=== PATIENT | male | born 1945 | race Caucasian/White ===

== ENCOUNTER 2017-12-16 08:55 | Day surgery (SDC) | payer MEDICARE, OTHER ==
[2017-12-16] MEDS ORDERED: Sodium Chloride 0.9% 5 ML Syringe FLUSH PRN (09:00)
[2017-12-16] MEDS ORDERED: Lactated Ringers 1,000 ML IV SCH (09:00)
[2017-12-16] MEDS ORDERED: Midazolam 1 MG/ML 2 ML SDV ONE (09:10)
[2017-12-16] MEDS ORDERED: Propofol 200 MG/20 ML SDV ONE (09:11)
[2017-12-16] MEDS ORDERED: fentaNYL 100 MCG/2 ML SDV ONE (09:11)
[2017-12-16] MEDS ORDERED: EPINEPHrine 1:10,000 1 MG/10 ML Syringe ONE (09:14)
[2017-12-16] MEDS ORDERED: Propofol 200 MG/20 ML SDV IV ONE (10:07)
[2017-12-16] MEDS ORDERED: Midazolam 1 MG/ML 2 ML SDV IV ONE (10:07)
[2017-12-16] MEDS ORDERED: fentaNYL 100 MCG/2 ML SDV IV ONE (10:07)
--- NOTE | 2017-12-16 10:46 | PCM.OPNOTE ---
- General Post-Op/Procedure Note Condition: Good Free Text/Narrative:: INFORMED CONSENT: Patient is here today for elective colonoscopy. All aspects of this procedure have been discussed with the patient. All possible complications also, including possibility of perforation, infection, pain, bleeding and unknown complications. In the event of perforation patient may need to have abdominal exploration, colon resection, colostomy and even was discussed. Anesthetic complications were handled by anesthesia department. The patient understands fully well. Patient did not have any further questions for me at the end of my interview. The patient wishes for me to proceed. PREOPERATIVE DIAGNOSIS/INDICATIONS: [Screening] POSTOPERATIVE DIAGNOSIS: [Multiple large diverticuli in the sigmoid colon and in the descending colon otherwise negative] INSTRUMENT USED: Olympus videocolonoscope. ASA CLASSIFICATION: [2] ANESTHESIA: Continuous EKG, oximetry and intermittent blood pressure and respiratory monitoring were performed throughout the procedure. IV Versed and Fentanyl were administered. PROCEDURE PERFORMED: Colonoscopy POSITIONS OF PATIENT: Left lateral. RECTUM: Normal. SIGMOID COLON: Multiple large diverticuli were seen. DESCENDING COLON: Multiple diverticuli were seen. SPLENIC FLEXURE: Normal. TRANSVERSE COLON: Normal. HEPATIC FLEXURE: Normal. ASCENDING COLON: Normal. CECUM: Normal. ILEOCECAL VALVE: Normal. BIOPSY: None. TOLERANCE: Excellent. COMPLICATIONS: None. Multiple large diverticuli of the sigmoid and descending colon, otherwise normal.
[2017-12-16 13:04] VITALS: BP 122/70
== END 2017-12-16 12:30 | disposition home or self-care (01) ==
LOC: KA.SDS 08:55
PROVIDERS: ATTEND Family Medicine
DX: Z12.11 Encounter for screening for malignant neoplasm of colon (principal); K57.30 Diverticulosis of large intestine without perforation or abscess without bleeding; I12.9 Hypertensive chronic kidney disease with stage 1 through stage 4 chronic kidney disease, or unspecified chronic kidney disease; N18.3 Chronic kidney disease, stage 3 (moderate); J20.9 Acute bronchitis, unspecified; E79.0 Hyperuricemia without signs of inflammatory arthritis and tophaceous disease; E78.00 Pure hypercholesterolemia, unspecified; C91.10 Chronic lymphocytic leukemia of B-cell type not having achieved remission; M25.562 Pain in left knee; M25.561 Pain in right knee; F41.9 Anxiety disorder, unspecified; G20 Parkinson's disease; Z79.899 Other long term (current) drug therapy; Z88.1 Allergy status to other antibiotic agents
CPT/HCPCS: 93005; J2250; J2704; J3010

== ENCOUNTER 2018-11-12 12:43 | Inpatient (IN) | payer MEDICARE, OTHER ==
[2018-11-12] MEDS: Sodium Chloride 0.9% 10 ML Syringe FLUSH PRN ×2 (13:06→17:13)
[2018-11-12] MEDS ORDERED: Morphine 2 MG/ML Syringe IVPUSH PRN (13:16)
[2018-11-12 13:32] LABS: ANION GAP 14.7 mmol/L (5-15)
[2018-11-12] MEDS: Furosemide 40 MG/4 ML VIAL IVPUSH SCH (14:15)
[2018-11-12] MEDS ORDERED: Albuterol 8 GM Inhaler INH PRN (17:59)
[2018-11-12] MEDS ORDERED: Fluticasone Propionate Nasal Spray 16 GM Bottle NASBOTH PRN (18:06)
[2018-11-12] MEDS: traMADol 50 MG Tab PO SCH (20:21)
[2018-11-12] MEDS ORDERED: Carbidopa/Levodopa 50-200 MG Tab.ER PO SCH (21:00)
[2018-11-12] MEDS: Mirtazapine 15 MG Tab PO SCH (21:57)
[2018-11-12] MEDS: Docusate Sodium 100 MG Cap PO SCH (21:57)
[2018-11-12] MEDS: Topiramate 25 MG Tab PO SCH (21:58)
[2018-11-12] MEDS: Carbidopa/Levodopa 25-100 MG Tab.ER PO SCH (21:58)
[2018-11-12] MEDS ORDERED: traMADol 50 MG Tab PO SCH (23:00)
[2018-11-13] MEDS ORDERED: Carbidopa/Levodopa 50-200 MG Tab.ER PO PRN (01:00)
[2018-11-13] MEDS: oxyCODONE 5 MG Tab PO PRN ×3 (02:12→11:35)
[2018-11-13] MEDS: Carbidopa/Levodopa 25-100 MG Tab.ER PO PRN (02:12)
[2018-11-13] MEDS: Citalopram 20 MG Tab PO SCH (08:20)
[2018-11-13] MEDS: atorvaSTATin 10 MG Tab PO SCH (08:20)
[2018-11-13] MEDS: Topiramate 25 MG Tab PO SCH ×2 (08:20→20:07)
[2018-11-13] MEDS: Omeprazole 20 MG Cap.CR PO SCH (08:20)
[2018-11-13] MEDS: Docusate Sodium 100 MG Cap PO SCH ×2 (08:21→20:07)
[2018-11-13] MEDS: traMADol 50 MG Tab PO SCH ×2 (08:21→20:05)
[2018-11-13] MEDS: Carbidopa/Levodopa 25-100 MG Tab PO SCH ×3 (08:21→17:35)
[2018-11-13] MEDS: Apixaban 5 MG Tab PO SCH ×2 (08:22→20:06)
[2018-11-13] MEDS: Polyethylene Glycol 3350 Powder 17 GM Packet PO SCH (08:23)
[2018-11-13] MEDS: Allopurinol 100 MG Tab PO SCH (08:29)
[2018-11-13] MEDS: Propranolol 80 MG Cap.ER PO SCH (08:29)
[2018-11-13] MEDS: Furosemide 40 MG/4 ML VIAL IVPUSH SCH (08:31)
[2018-11-13] MEDS: Sodium Chloride 0.9% 10 ML Syringe FLUSH PRN (08:32)
[2018-11-13 08:48] LABS: ANION GAP 12.5 mmol/L (5-15)
[2018-11-13] MEDS ORDERED: Non-Formulary Medication 1 Each (Cholecalciferol (Vitamin D3) [Vitamin D3] 400 UNIT) PO SCH (09:00)
[2018-11-13] MEDS ORDERED: Non-Formulary Medication 1 Each (Acetylcysteine [Nac] 600 MG) PO SCH (09:00)
[2018-11-13] MEDS ORDERED: IBRUTINIB 420 MG PO SCH (09:00)
[2018-11-13] MEDS: Mirtazapine 15 MG Tab PO SCH (20:08)
[2018-11-13] MEDS: Carbidopa/Levodopa 25-100 MG Tab.ER PO SCH (20:08)
[2018-11-14] MEDS: Carbidopa/Levodopa 25-100 MG Tab.ER PO PRN (02:36)
[2018-11-14] MEDS: Carbidopa/Levodopa 25-100 MG Tab PO SCH ×3 (06:33→16:41)
[2018-11-14] MEDS: Omeprazole 20 MG Cap.CR PO SCH (06:33)
[2018-11-14] MEDS: traMADol 50 MG Tab PO SCH ×2 (06:34→21:03)
[2018-11-14] MEDS: Propranolol 80 MG Cap.ER PO SCH (08:18)
[2018-11-14] MEDS: Docusate Sodium 100 MG Cap PO SCH ×2 (08:18→21:06)
[2018-11-14] MEDS: Polyethylene Glycol 3350 Powder 17 GM Packet PO SCH (08:18)
[2018-11-14] MEDS: Topiramate 25 MG Tab PO SCH ×2 (08:18→21:05)
[2018-11-14] MEDS: atorvaSTATin 10 MG Tab PO SCH (08:18)
[2018-11-14] MEDS: Allopurinol 100 MG Tab PO SCH (08:18)
[2018-11-14] MEDS: Citalopram 20 MG Tab PO SCH (08:19)
[2018-11-14] MEDS: Apixaban 5 MG Tab PO SCH ×2 (08:19→21:04)
[2018-11-14] MEDS: Furosemide 40 MG/4 ML VIAL IVPUSH SCH (08:22)
[2018-11-14] MEDS: Sodium Chloride 0.9% 10 ML Syringe FLUSH PRN (08:28)
[2018-11-14] MEDS: oxyCODONE 5 MG Tab PO PRN ×2 (09:35→16:41)
--- NOTE | 2018-11-14 13:43 | PN ---
11/14/2018 PATIENT NAME: MONICA VALDEZ SUBJECTIVE: This is a 73-year-old patient who had a left total knee surgery replacement by Dr. Sanderson this past Thursday. The patient was doing okay after surgery, went home and then he walked on his knee. He had no pain on the knee and then he woke up next morning, which would be Thursday morning and the knee was very swollen and painful. He went to the clinic at that time. He was admitted to the hospital. Today the patient states he cannot believe how well the knee is doing; he says the swelling is way down and the bruising is way down. He keeps it elevated on two pillows with a cold pack on it. He has been getting Lasix IV daily. There is some drainage coming from the robotic incisions. It has been draining some serosanguineous drainage. He states that the dressing was saturated last night. OBJECTIVE: VITAL SIGNS: Today, his weight is 210, temperature is 98.3, pulse is 66, blood pressure is 158/78, respiratory rate is 16, and oxygen saturation on room air is 99%. GENERAL: This is an elderly gentleman, pleasant, no acute distress. HEART: Tones are regular rate and rhythm. No murmurs identified. GI: Abdomen is soft, nontender, and nondistended. Bowel sounds present x4. LUNGS: Sounds are clear throughout lung carbone. 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 He has lot of pain with movement. LABORATORY DATA: The patient's lab work today, his CBC shows a white count continuing trending downward, white count today is 11.9. Hemoglobin continues to trend down also at 9.2, yesterday it was 9.4, and platelet count is 131. Chemistry panel shows a sodium that is up almost to normal, yesterday it was 129, today it is 134. The patient's BUN is 22, creatinine is 1.22, GFR is 58. The patient's total protein is low at 5.0 and albumin is low at 2.4, otherwise unremarkable. IMPRESSION AND PLAN: 1. Increased pain and swelling to left knee, status post total knee arthroplasty from this past Thursday by Dr. Sanderson. Plan: We are going to continue to elevate the knee. We will continue with Eliquis 2.5 mg twice a day. Continue with cold pack. We will continue with Lasix 20 mg daily. The patient's weight is going down. Physical Therapy will evaluate the patient tomorrow. 2. History of gout. Plan: Continue with allopurinol 100 mg daily. 3. History of hyperlipidemia. Plan: Continue with Lipitor 20 mg daily. 4. History of Parkinson's. Plan: Continue with Sinemet as ordered. 5. History of depression. Plan: Continue with Celexa 10 mg daily. 6. History of insomnia. Plan: Continue with Remeron 15 mg at bedtime. 7. History of gastroesophageal reflux disease. Plan: Continue with omeprazole 20 mg in the morning. 8. Pain secondary to recent surgery. Plan: Continue with morphine 2 mg IV every 6 hours as needed. He also can have some oxycodone 5 mg every 4 hours as needed for pain. 9. History of migraine headaches. Plan: Continue with Inderal LA 80 mg daily along with Topamax 50 mg twice a day. OVERALL PLAN: Repeat lab work in the morning and CBC to see if his white count continues to trend down. Also to keep an eye on his hemoglobin. It is down to 9.2. We will also repeat a CMP tomorrow morning. Continue to keep an eye on his renal function. May need to consider discontinuing Lasix tomorrow. The patient's CBC does show smudge cells. /[id number]/MODL MTDD
[2018-11-14] MEDS: Mirtazapine 15 MG Tab PO SCH (21:06)
[2018-11-14] MEDS: Carbidopa/Levodopa 25-100 MG Tab.ER PO SCH (21:06)
[2018-11-14 23:20] VITALS: PULSE 71
[2018-11-15] MEDS: Carbidopa/Levodopa 25-100 MG Tab.ER PO PRN (02:38)
[2018-11-15] MEDS: traMADol 50 MG Tab PO SCH (07:40)
[2018-11-15] MEDS: Carbidopa/Levodopa 25-100 MG Tab PO SCH ×2 (07:40→10:46)
[2018-11-15] MEDS: Omeprazole 20 MG Cap.CR PO SCH (07:40)
[2018-11-15 07:52] LABS: ANION GAP 13.6 mmol/L (5-15)
[2018-11-15] MEDS: Polyethylene Glycol 3350 Powder 17 GM Packet PO SCH (08:32)
[2018-11-15] MEDS: Apixaban 5 MG Tab PO SCH (08:34)
[2018-11-15] MEDS: Docusate Sodium 100 MG Cap PO SCH (08:34)
[2018-11-15] MEDS: atorvaSTATin 10 MG Tab PO SCH (08:34)
[2018-11-15] MEDS: Citalopram 20 MG Tab PO SCH (08:34)
[2018-11-15] MEDS: Propranolol 80 MG Cap.ER PO SCH (08:34)
[2018-11-15] MEDS: Allopurinol 100 MG Tab PO SCH (08:34)
[2018-11-15] MEDS: Topiramate 25 MG Tab PO SCH (08:38)
[2018-11-15 08:39] VITALS: BP 130/68
[2018-11-15] MEDS: Sodium Chloride 0.9% 10 ML Syringe FLUSH PRN (08:39)
[2018-11-15] MEDS: Furosemide 40 MG/4 ML VIAL IVPUSH SCH (08:39)
--- NOTE | 2018-11-15 08:54 | PN ---
11/13/2018 PATIENT NAME: MONICA VALDEZ HISTORY OF PRESENT ILLNESS: This is a 73-year-old male patient who had a total knee replacement done by Dr. Sanderson in [place] on Thursday. He states on morning he got up and walked and he did all the tests they wanted before he went home. He went home on from the hospital in [place]. He states that he went home night, the knee started to swell a lot, became very painful. He woke up Thursday, it was very large, red, painful. He went to the clinic and had seen Dr. Mary Byrd at that time. The patient was admitted for increased swelling to right knee. The patient did have quite a bit of drainage from the robotic incisions below the knee. It was draining serosanguineous drainage. Today, the patient states that it is still pretty swollen, but nothing like it was. He does have a cold pack on it at this time. It is still draining a little bit of fluid. He says the pain seems to be better today. OBJECTIVE: VITAL SIGNS: Today, the patient's weight is 213 pounds. Temperature is 98.2, pulse rate is 77, blood pressure is 122/69, respiratory rate is 16, oxygen saturation on room air is 99%. GENERAL: This is an elderly gentleman, in no acute distress. The patient does have his left leg elevated. Left leg is very tender with palpation. It is edematous. There is some drainage coming out of the small incisions where the robotic went through. Dressing was changed while I was in there. Continue with the cold compress that he has on there. HEART: Tones are regular rate and rhythm. No murmurs identified. LUNGS: Sounds are clear throughout lung carbone. ABDOMEN: Soft, nontender, nondistended. Bowel sounds present x4. LABORATORY DATA: The patient's lab work that he had obtained today is CBC shows a white count elevated at 12.7, this improved from yesterday when it was 16.8. Hemoglobin is down a little bit today at 9.4, yesterday it was 10.6, platelet count was slightly low at 130. The patient's chemistry panel shows sodium low at 97, creatinine 1.25, GFR of 56. Albumin is low at 2.37, otherwise unremarkable. IMPRESSION AND PLAN: 1. Status post left total knee done by Dr. Sanderson this past Thursday with increased swelling and pain after being discharged home. Plan, will continue with Eliquis 2.5 mg twice a day. Also, continue with Lasix 20 mg IV daily. We will continue to keep the leg elevated with cold pack on it to keep the swelling down as much as possible. He is unable to tolerate a GARFIELD stocking on that leg at this time. 2. History of gout. Plan, continue with allopurinol 100 mg daily. 3. History of hyperlipidemia. Plan, continue with Lipitor 20 mg daily. 4. History of Parkinson's. Plan, continue with Sinemet as ordered. 5. History of depression. Plan, continue with Celexa 10 mg daily. 6. History of cancer. Continue with Imbruvica as ordered. 7. History of insomnia. Plan, continue with Remeron 50 mg at bedtime. 8. Pain secondary to recent surgery. Plan, continue with morphine as ordered every 6 hours as needed. Also, tramadol, he can have as needed every 4 hours. 9. History of gastroesophageal reflux disease. Plan, continue with omeprazole 20 mg daily in the morning. 10.History of migraines. Plan, continue with Inderal 80 mg long-acting daily along with Topamax 50 mg twice a day. OVERALL PLAN: Continue to see how the patient's pain and swelling does. No medication changes today. We will continue to change the dressing to the left knee twice daily per nursing staff. /[id number]/MODL
[2018-11-15] MEDS: oxyCODONE 5 MG Tab PO PRN (10:31)
--- NOTE | 2018-11-15 12:27 | DISCH ---
Date of discharge to swing bed would be today, which is 11/15/2018. ADMITTING DIAGNOSIS: Increased pain and swelling to left knee, status post total knee arthroplasty by Dr. Sanderson. FINAL DIAGNOSIS: Left knee rehabilitation needed strengthening and pain control along with edema control to left, status post total knee. BRIEF HISTORY AND ESSENTIAL PHYSICAL FINDINGS: This is a 73-year-old gentleman with a history of Parkinson's who had a left total knee replacement done by Dr. Sanderson in [place] on Thursday. On , he was discharged from the hospital in [place]. He had gone home, he says the pain was really not very much in his knee, so he had walked. When he got home, he says that knee felt really good, so he had walked with a walker when he got home. He woke up Thursday and the knee was very swollen and very painful. He went to the clinic at that time and seeing Dr. Mary Byrd. The patient's knee was very edematous and painful. The patient was admitted to the hospital at that time. SIGNIFICANT LABS XRAYS AND CONSULTATION FINDINGS: The patient's lab work that was obtained today, which is 11/15/2018, CBC shows white count 12.8, hemoglobin 9.1, platelet count 154. Chemistry panel shows sodium slightly low at 133, creatinine slightly elevated at 1.34, GFR is 52. The patient's total protein is low at 5.5 and albumin is low at 2.28, otherwise unremarkable. COURSE IN HOSPITAL WITH COMPLICATIONS IF ANY: The patient has had his left knee elevated on pillows with a cold pack on it. He has had assist to the bathroom. He has been doing very well. The patient states that the swelling and the pain is much improved. Still very hard for him to get up and walk on the knee. He says it is amazing how much better the knee looks now than it did on Thursday. CONDITION TREATMENT AND FINAL DISPOSITION ON DISCHARGE AND PROGNOSIS: 1. Status post left knee replacement with increased pain and swelling. We are going to swing the patient over to swing bed status today. He has been doing very well since admission. He does need quite intense physical therapy prior to going home. We are going to continue to keep the knee elevated on pillows along with a cold pack. We are going to keep him anticoagulated on Eliquis 2.5 mg twice a day. Physical therapy appointment he had at 10 o'clock this morning. They are going to evaluate him. I am actually going to discontinue Lasix today. Creatinine is coming up a little bit, so I am going to discontinue that p.o. Lasix. 2. History of gout. Plan, continue with allopurinol 100 mg daily. 3. History of hyperlipidemia. Plan, continue with Lipitor 20 mg daily. 4. History of Parkinson. Plan, continue with Sinemet as ordered. 5. History of depression. Plan, continue with Celexa 10 mg daily. 6. History of insomnia. Plan, continue with Remeron 15 mg at bedtime. 7. History of GERD. Plan, continue with omeprazole 20 mg in the morning. 8. Secondary to recent surgery. Plan, continue with morphine 2 mg IV every 6 hours as needed. Also, he is on some oxycodone 5 mg every 4 hours as needed for pain. 9. History of migraine headaches. Plan, continue with Inderal LA 80 mg daily along with Topamax 50 mg twice a day. OVERALL PLAN: The patient seems to be doing very well. We are going to swing him over to swing bed status today for physical therapy and occupational therapy to work with them prior to going back home status post his left total knee arthroplasty. /[id number]/MODL
== END 2018-11-15 10:15 | disposition swing bed (61) | DRG 561 ==
LOC: KA.MS 12:43
PROVIDERS: ADMIT Family Medicine; ATTEND Family Medicine
DX: Z47.1 Aftercare following joint replacement surgery (principal); N18.3 Chronic kidney disease, stage 3 (moderate); G20 Parkinson's disease; Z96.652 Presence of left artificial knee joint; G47.00 Insomnia, unspecified; M10.9 Gout, unspecified; K21.9 Gastro-esophageal reflux disease without esophagitis; I12.9 Hypertensive chronic kidney disease with stage 1 through stage 4 chronic kidney disease, or unspecified chronic kidney disease; G43.909 Migraine, unspecified, not intractable, without status migrainosus; Z96.651 Presence of right artificial knee joint; I48.91 Unspecified atrial fibrillation; I25.10 Atherosclerotic heart disease of native coronary artery without angina pectoris; E78.00 Pure hypercholesterolemia, unspecified; Z88.1 Allergy status to other antibiotic agents; Z85.46 Personal history of malignant neoplasm of prostate; Z86.718 Personal history of other venous thrombosis and embolism; Z85.118 Personal history of other malignant neoplasm of bronchus and lung; Z90.49 Acquired absence of other specified parts of digestive tract; Z92.21 Personal history of antineoplastic chemotherapy; Z90.89 Acquired absence of other organs; Z87.81 Personal history of (healed) traumatic fracture
CPT/HCPCS: 36415; 80053; 85025; A9270-GY; J1940; J2270

== ENCOUNTER 2018-11-15 09:03 | Inpatient (IN) | payer MEDICARE, OTHER ==
[2018-11-15] MEDS ORDERED: Albuterol 8 GM Inhaler INH PRN ×2 (10:20→10:25)
[2018-11-15] MEDS ORDERED: Sodium Chloride 0.9% 10 ML Syringe FLUSH PRN ×2 (10:20)
[2018-11-15] MEDS ORDERED: Morphine 2 MG/ML Syringe IVPUSH PRN (10:20)
[2018-11-15] MEDS ORDERED: Fluticasone Propionate Nasal Spray 16 GM Bottle NASBOTH PRN ×2 (10:20→10:25)
[2018-11-15] MEDS ORDERED: PSEUDOEPHEDRINE HCL 120 MG PO PRN (10:25)
[2018-11-15] MEDS ORDERED: oxyCODONE 5 MG Tab PO PRN (10:25)
[2018-11-15] MEDS ORDERED: oxyCODONE 5 MG Tab PO ONE (10:26)
[2018-11-15] MEDS ORDERED: traMADol 50 MG Tab PO SCH (11:00)
[2018-11-15] MEDS ORDERED: Carbidopa/Levodopa 25-100 MG Tab PO SCH (11:30)
--- NOTE | 2018-11-15 11:57 | HP ---
HISTORY OF PRESENT ILLNESS: This is a 73-year-old patient who recently had a left total knee surgery replacement by Dr. Sanderson on this past Thursday. The patient was doing okay after surgery. He had gotten up and walked and passed all the requirements before going home, so he had been discharged on morning. He had gone home and he had limited pain to his left knee, so he walked at home with his walker. He went to bed and he woke up Thursday, and his knee was very painful and very swollen. He was concerned, so he went to the clinic at that time and seen Dr. Delano Byrd. The patient's knee was draining some serosanguineous drainage from the robotic sites. The patient was admitted to the hospital at that time. The patient does have a history of Parkinson's. The patient was originally admitted over the weekend in acute status and his knee was elevated and cold pack applied. He was given some IV Lasix and his knee did drain some drainage and the swelling and bruising did improve quite a bit. The pain also did improve. PAST MEDICAL HISTORY: Gout, hyperlipidemia, Parkinson's, depression, recent cancer diagnosis, insomnia, GERD, migraines, and left total knee. MEDICATIONS: While in the hospital, he had albuterol inhaler that he would use every 4 hours as needed, allopurinol 100 mg daily, Eliquis 2.5 mg twice a day, Lipitor 20 mg daily, Sinemet as ordered. He was taking vitamin D3 400 units daily, Celexa 10 mg daily, Colace 100 mg twice daily, Elodia-Colace 1 tab twice a day. He also had Flonase nasal spray as needed. He is taking Imbruvica 420 mg daily, Remeron 15 mg at bedtime, morphine 2 mg IV every 6 hours as needed, omeprazole 20 mg daily in the morning, oxycodone 5 mg every 4 hours as needed, MiraLAX 17 g daily, Inderal LA 80 mg p.o. daily, Topamax 50 mg twice a day, tramadol scheduled every 12 hours, and some urea 20% cream topical daily. ALLERGIES: Levaquin. 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 Lives here in [place] with his . No alcohol or tobacco use. REVIEW OF SYSTEMS: CONSTITUTIONAL: No weight loss. No fever. No chills. No night sweats. Appetite is good. No fatigue. EYES: No recent visual changes. ENT: No sinus congestion or hoarseness. CARDIOVASCULAR: No chest pain or palpitations. RESPIRATORY: No cough. No shortness of breath. GI: No vomiting, diarrhea or melena. : No dysuria or hematuria. MUSCULOSKELETAL: Left knee swollen, painful, status post surgery. INTEGUMENTARY: No rash or pruritus. NEUROLOGIC/PSYCHIATRIC: No recent headache or focal weakness. No depressive symptoms. ENDOCRINE: No heat or cold intolerances or polydipsia. HEMATOLOGIC/LYMPHATIC: No excessive bruising or lymph node swelling. ALLERGIC/IMMUNOLOGIC: No hives or recurrent infections. PHYSICAL EXAMINATION: GENERAL: This is a white male, elderly, in no acute distress. VITAL SIGNS: Today, temperature is 98.5, weight is 210 pounds, pulse rate is 71, blood pressure is 130/68, respiratory rate is 16, oxygen saturation on room air is 99. HEENT: Head is normocephalic. EOMs are intact. Pupils are equal, round, and reactive to light and accommodation. Nose is clear. No pharyngeal erythema. LUNGS: Sounds are clear throughout lung carbone. CARDIAC: Regular rate and rhythm. No murmurs identified. ABDOMEN: Soft, nontender, nondistended. Bowel sounds present x4. EXTREMITIES: Full range of motion except the left knee is edematous. Surgical dressing still intact. Ecchymosis is improved from previous assessment. NEUROLOGIC: Grossly intact. DIAGNOSTIC: The patient's lab work that was obtained today. CBC shows a white count at 12.8, hemoglobin 9.1, platelet count 154. Chemistry panel shows sodium slightly low 133. The patient's creatinine is slightly elevated at 1.34, BUN is 24, GFR is 52. The patient's total protein is low at 5.5, albumin is low at 2.28. IMPRESSION/PLAN: 1. Pain and swelling, status post total knee surgery this past week by Dr. Sanderson in [place]. Plan: We will continue to elevate the knee as much as possible. Continue with cold pack. We will continue with anticoagulation of Eliquis 2.5 mg twice a day. Physical Therapy did evaluate the patient this morning. I am going to discontinue the patient's Lasix today. The weight has gone down, up with assist. 2. History of gout. Plan: Continue with allopurinol 100 mg daily. 3. History of hyperlipidemia. Plan: Continue with Lipitor 20 mg daily. 4. History of Parkinson's. Plan: Continue with Sinemet as ordered. 5. History of depression. Plan: Continue with Celexa 10 mg daily. 6. History of insomnia. Plan: Continue with Remeron 15 mg at bedtime. 7. History of gastroesophageal reflux disease. Plan: Continue with omeprazole 20 mg daily in the morning. 8. Secondary to recent surgery. Plan: Continue with tramadol 50 mg twice a day scheduled. I did discontinue his IV morphine, he may have oxycodone 5 mg orally every 4 hours as needed for pain. He has not been needing much of the p.r.n. medication. May consider decreasing the tramadol dose to PRN. 9. History of migraine headaches. Plan: Continue with Inderal LA 80 mg daily along with Topamax 50 mg twice a day. OVERALL PLAN: The patient is being discharged from inpatient acute status to swing bed status today. The patient is doing really well. Knee swelling has gone down. Bruising has gone down. Pain has gone down. He seems to be doing well. We will see how he does with physical therapy and walking. We will keep an eye on his lab work at this time. Patient does have a history of CLL and he did have some smudge cells on his CBC. /[id number]/MODL MTDD
[2018-11-15] MEDS: oxyCODONE 5 MG Tab PO PRN ×2 (15:38→22:16)
[2018-11-15] MEDS: Carbidopa/Levodopa 25-100 MG Tab PO SCH (17:54)
[2018-11-15] MEDS: traMADol 50 MG Tab PO SCH (19:40)
[2018-11-15] MEDS ORDERED: DOCUSATE CALCIUM 100 MG PO SCH (21:00)
[2018-11-15] MEDS ORDERED: Mirtazapine 15 MG Tab PO SCH (21:00)
[2018-11-15] MEDS ORDERED: Non-Formulary Medication 1 Each (Topiramate [Topiramate] 50 MG) PO SCH (21:00)
[2018-11-15] MEDS ORDERED: Non-Formulary Medication 1 Each (Apixaban [Eliquis] 2.5 MG) PO SCH (21:00)
[2018-11-15] MEDS ORDERED: Carbidopa/Levodopa 50-200 MG Tab.ER PO SCH (21:00)
[2018-11-15] MEDS: Apixaban 5 MG Tab PO SCH (21:06)
[2018-11-15] MEDS: Mirtazapine 15 MG Tab PO SCH (21:06)
[2018-11-15] MEDS: Docusate Sodium 100 MG Cap PO SCH (21:06)
[2018-11-15] MEDS: Carbidopa/Levodopa 25-100 MG Tab.ER PO SCH (21:07)
[2018-11-15] MEDS: Topiramate 25 MG Tab PO SCH (21:07)
[2018-11-16] MEDS ORDERED: Carbidopa/Levodopa 50-200 MG Tab.ER PO PRN (01:00)
[2018-11-16] MEDS: traMADol 50 MG Tab PO SCH (07:43)
[2018-11-16] MEDS: Omeprazole 20 MG Cap.CR PO SCH (07:43)
[2018-11-16] MEDS: Carbidopa/Levodopa 25-100 MG Tab PO SCH ×3 (07:43→16:40)
[2018-11-16] MEDS: Propranolol 80 MG Cap.ER PO SCH (08:52)
[2018-11-16] MEDS: atorvaSTATin 10 MG Tab PO SCH (08:52)
[2018-11-16] MEDS: CHOLECALCIFEROL 400 UNIT PO SCH (08:52)
[2018-11-16] MEDS: N ACETYL CYSTEINE PO SCH (08:52)
[2018-11-16] MEDS: Docusate Sodium 100 MG Cap PO SCH ×2 (08:52→20:49)
[2018-11-16] MEDS: Polyethylene Glycol 3350 Powder 17 GM Packet PO SCH (08:52)
[2018-11-16] MEDS: Allopurinol 100 MG Tab PO SCH (08:52)
[2018-11-16] MEDS: Citalopram 20 MG Tab PO SCH (08:53)
[2018-11-16] MEDS: Topiramate 25 MG Tab PO SCH ×2 (08:53→20:48)
[2018-11-16] MEDS: Apixaban 5 MG Tab PO SCH ×2 (08:53→20:49)
[2018-11-16] MEDS ORDERED: Omeprazole 20 MG Cap.CR PO SCH (09:00)
[2018-11-16] MEDS ORDERED: IBRUTINIB 420 MG PO SCH (09:00)
[2018-11-16] MEDS ORDERED: Non-Formulary Medication 1 Each (Cholecalciferol (Vitamin D3) [Vitamin D3] 400 UNIT) PO SCH (09:00)
[2018-11-16] MEDS ORDERED: Furosemide 40 MG/4 ML VIAL IVPUSH SCH (09:00)
[2018-11-16] MEDS ORDERED: Non-Formulary Medication 1 Each (Acetylcysteine [Nac] 600 MG) PO SCH (09:00)
[2018-11-16] MEDS ORDERED: Allopurinol 100 MG Tab PO SCH (09:00)
[2018-11-16] MEDS ORDERED: atorvaSTATin 10 MG Tab PO SCH (09:00)
[2018-11-16] MEDS ORDERED: Propranolol 80 MG Cap.ER PO SCH (09:00)
[2018-11-16] MEDS ORDERED: CITALOPRAM HYDROBROMIDE 10 MG PO SCH (09:00)
[2018-11-16] MEDS ORDERED: Polyethylene Glycol 3350 Powder 17 GM Packet PO SCH (09:00)
[2018-11-16] MEDS: oxyCODONE 5 MG Tab PO PRN ×3 (09:55→20:53)
[2018-11-16] MEDS: Acetaminophen 500 MG Tab PO SCH ×2 (11:27→20:47)
[2018-11-16] MEDS: Mirtazapine 15 MG Tab PO SCH (20:49)
[2018-11-16] MEDS: Carbidopa/Levodopa 25-100 MG Tab.ER PO SCH (20:49)
[2018-11-16] MEDS ORDERED: Morphine 4 MG/ML Syringe IM ONE (23:00)
[2018-11-17] MEDS ORDERED: Morphine 2 MG/ML Syringe IVPUSH ONE (00:46)
[2018-11-17] MEDS: Sodium Chloride 0.9% 50 ML IV SCH (00:56)
[2018-11-17] MEDS: traMADol 50 MG Tab PO SCH ×3 (02:48→20:19)
[2018-11-17] MEDS: oxyCODONE 5 MG Tab PO PRN ×4 (05:38→21:35)
[2018-11-17] MEDS: Carbidopa/Levodopa 25-100 MG Tab.ER PO PRN (05:55)
[2018-11-17] MEDS: Omeprazole 20 MG Cap.CR PO SCH (07:58)
[2018-11-17] MEDS: Allopurinol 100 MG Tab PO SCH (07:59)
[2018-11-17] MEDS: Citalopram 20 MG Tab PO SCH (08:00)
[2018-11-17] MEDS: Carbidopa/Levodopa 25-100 MG Tab PO SCH ×3 (08:01→16:24)
[2018-11-17] MEDS: Propranolol 80 MG Cap.ER PO SCH (08:02)
[2018-11-17] MEDS: Topiramate 25 MG Tab PO SCH ×2 (08:03→20:17)
[2018-11-17] MEDS: Apixaban 5 MG Tab PO SCH ×2 (08:04→20:16)
[2018-11-17] MEDS: atorvaSTATin 10 MG Tab PO SCH (08:05)
[2018-11-17] MEDS: Docusate Sodium 100 MG Cap PO SCH ×2 (08:06→20:18)
[2018-11-17] MEDS: Polyethylene Glycol 3350 Powder 17 GM Packet PO SCH (08:08)
[2018-11-17] MEDS: N ACETYL CYSTEINE PO SCH (08:08)
[2018-11-17] MEDS: CHOLECALCIFEROL 400 UNIT PO SCH (08:08)
[2018-11-17] MEDS ORDERED: oxyCODONE 5 MG Tab PO ONE (10:45)
[2018-11-17] MEDS: Carbidopa/Levodopa 25-100 MG Tab.ER PO SCH (20:17)
[2018-11-17] MEDS: Mirtazapine 15 MG Tab PO SCH (20:17)
[2018-11-17] MEDS: Sodium Chloride 0.9% 10 ML Syringe FLUSH PRN (23:56)
[2018-11-18] MEDS: oxyCODONE 5 MG Tab PO PRN ×3 (01:57→23:33)
[2018-11-18] MEDS: Carbidopa/Levodopa 25-100 MG Tab.ER PO PRN (03:01)
[2018-11-18] MEDS: Omeprazole 20 MG Cap.CR PO SCH (07:56)
[2018-11-18] MEDS: Carbidopa/Levodopa 25-100 MG Tab PO SCH ×3 (07:57→17:07)
[2018-11-18] MEDS: traMADol 50 MG Tab PO SCH ×2 (08:43→20:27)
[2018-11-18] MEDS: Apixaban 5 MG Tab PO SCH ×2 (08:43→20:27)
[2018-11-18] MEDS: Citalopram 20 MG Tab PO SCH (08:43)
[2018-11-18] MEDS: N ACETYL CYSTEINE PO SCH (08:43)
[2018-11-18] MEDS: CHOLECALCIFEROL 400 UNIT PO SCH (08:43)
[2018-11-18] MEDS: atorvaSTATin 10 MG Tab PO SCH (08:43)
[2018-11-18] MEDS: Propranolol 80 MG Cap.ER PO SCH (08:44)
[2018-11-18] MEDS: Topiramate 25 MG Tab PO SCH ×2 (08:44→20:28)
[2018-11-18] MEDS: Docusate Sodium 100 MG Cap PO SCH ×2 (08:44→20:27)
[2018-11-18] MEDS: Allopurinol 100 MG Tab PO SCH (08:44)
[2018-11-18] MEDS: Polyethylene Glycol 3350 Powder 17 GM Packet PO SCH (08:44)
[2018-11-18] MEDS ORDERED: IBRUTINIB 420 MG PO SCH (09:00)
[2018-11-18] MEDS ORDERED: IBRUTINIB 140 MG PO SCH (09:00)
[2018-11-18] MEDS: Carbidopa/Levodopa 25-100 MG Tab.ER PO SCH (20:28)
[2018-11-18] MEDS: Mirtazapine 15 MG Tab PO SCH (20:28)
[2018-11-18] MEDS: IBRUTINIB 140 MG PO SCH (20:30)
[2018-11-19] MEDS: oxyCODONE 5 MG Tab PO PRN ×3 (04:56→14:31)
[2018-11-19] MEDS: Carbidopa/Levodopa 25-100 MG Tab.ER PO PRN (04:56)
[2018-11-19] MEDS: Apixaban 5 MG Tab PO SCH ×2 (08:17→20:57)
[2018-11-19] MEDS: Carbidopa/Levodopa 25-100 MG Tab PO SCH ×3 (08:17→17:09)
[2018-11-19] MEDS: Polyethylene Glycol 3350 Powder 17 GM Packet PO SCH (08:17)
[2018-11-19] MEDS: atorvaSTATin 10 MG Tab PO SCH (08:27)
[2018-11-19] MEDS: Allopurinol 100 MG Tab PO SCH (08:27)
[2018-11-19] MEDS: Omeprazole 20 MG Cap.CR PO SCH (08:27)
[2018-11-19] MEDS: Docusate Sodium 100 MG Cap PO SCH ×2 (08:27→20:56)
[2018-11-19] MEDS: traMADol 50 MG Tab PO SCH ×2 (08:28→20:56)
[2018-11-19] MEDS: Citalopram 20 MG Tab PO SCH (08:28)
[2018-11-19] MEDS: Topiramate 25 MG Tab PO SCH ×2 (08:28→20:56)
[2018-11-19] MEDS: N ACETYL CYSTEINE PO SCH (08:32)
[2018-11-19] MEDS: CHOLECALCIFEROL 400 UNIT PO SCH (08:32)
[2018-11-19] MEDS: Propranolol 80 MG Cap.ER PO SCH (08:35)
[2018-11-19] MEDS: Mirtazapine 15 MG Tab PO SCH (20:57)
[2018-11-19] MEDS: Carbidopa/Levodopa 25-100 MG Tab.ER PO SCH (20:58)
[2018-11-19] MEDS: IBRUTINIB 140 MG PO SCH (21:00)
[2018-11-20] MEDS: Carbidopa/Levodopa 25-100 MG Tab PO SCH ×3 (07:47→17:44)
[2018-11-20] MEDS: Omeprazole 20 MG Cap.CR PO SCH (07:47)
[2018-11-20] MEDS: Citalopram 20 MG Tab PO SCH (08:56)
[2018-11-20] MEDS: Docusate Sodium 100 MG Cap PO SCH ×2 (08:56→17:45)
[2018-11-20] MEDS: Apixaban 5 MG Tab PO SCH ×2 (08:56→20:26)
[2018-11-20] MEDS: Propranolol 80 MG Cap.ER PO SCH (08:56)
[2018-11-20] MEDS: Polyethylene Glycol 3350 Powder 17 GM Packet PO SCH (08:56)
[2018-11-20] MEDS: Topiramate 25 MG Tab PO SCH ×2 (08:56→20:27)
[2018-11-20] MEDS: traMADol 50 MG Tab PO SCH ×2 (08:57→20:26)
[2018-11-20] MEDS: atorvaSTATin 10 MG Tab PO SCH (08:57)
[2018-11-20] MEDS: Allopurinol 100 MG Tab PO SCH (08:57)
[2018-11-20] MEDS: N ACETYL CYSTEINE PO SCH (08:59)
[2018-11-20] MEDS: CHOLECALCIFEROL 400 UNIT PO SCH (08:59)
[2018-11-20] MEDS ORDERED: Tamsulosin 0.4 MG Cap.ER PO SCH (09:00)
[2018-11-20] MEDS: oxyCODONE 5 MG Tab PO PRN ×2 (09:31→13:34)
[2018-11-20] MEDS: Carbidopa/Levodopa 25-100 MG Tab.ER PO SCH (20:27)
[2018-11-20] MEDS: Mirtazapine 15 MG Tab PO SCH (20:27)
[2018-11-21] MEDS: Carbidopa/Levodopa 25-100 MG Tab.ER PO PRN (03:04)
[2018-11-21] MEDS: Omeprazole 20 MG Cap.CR PO SCH (07:43)
[2018-11-21] MEDS: Carbidopa/Levodopa 25-100 MG Tab PO SCH ×3 (07:43→17:54)
[2018-11-21] MEDS: Topiramate 25 MG Tab PO SCH ×2 (09:10→20:59)
[2018-11-21] MEDS: Allopurinol 100 MG Tab PO SCH (09:10)
[2018-11-21] MEDS: atorvaSTATin 10 MG Tab PO SCH (09:10)
[2018-11-21] MEDS: Polyethylene Glycol 3350 Powder 17 GM Packet PO SCH (09:10)
[2018-11-21] MEDS: traMADol 50 MG Tab PO SCH ×2 (09:10→20:59)
[2018-11-21] MEDS: Citalopram 20 MG Tab PO SCH (09:11)
[2018-11-21] MEDS: Apixaban 5 MG Tab PO SCH ×2 (09:11→20:58)
[2018-11-21] MEDS: Propranolol 80 MG Cap.ER PO SCH ×3 (09:21→11:26)
[2018-11-21] MEDS: Docusate Sodium 100 MG Cap PO SCH ×2 (09:40→17:54)
[2018-11-21] MEDS: CHOLECALCIFEROL 400 UNIT PO SCH (09:40)
[2018-11-21] MEDS: N ACETYL CYSTEINE PO SCH (09:40)
[2018-11-21] MEDS: oxyCODONE 5 MG Tab PO PRN ×2 (11:22→18:52)
[2018-11-21] MEDS: Sodium Chloride 0.9% 50 ML IV SCH (15:24)
[2018-11-21] MEDS ORDERED: Magnesium Hydroxide 400 MG/5 ML Susp 30 ML Cup PO PRN (18:53)
[2018-11-21] MEDS: Mirtazapine 15 MG Tab PO SCH (20:59)
[2018-11-21] MEDS: Carbidopa/Levodopa 25-100 MG Tab.ER PO SCH (20:59)
[2018-11-22] MEDS: Carbidopa/Levodopa 25-100 MG Tab.ER PO SCH ×2 (04:35→21:24)
[2018-11-22] MEDS: Omeprazole 20 MG Cap.CR PO SCH (07:44)
[2018-11-22] MEDS: Carbidopa/Levodopa 25-100 MG Tab PO SCH ×3 (07:44→17:12)
[2018-11-22] MEDS: Apixaban 5 MG Tab PO SCH ×2 (08:24→21:25)
[2018-11-22] MEDS: atorvaSTATin 10 MG Tab PO SCH (08:24)
[2018-11-22] MEDS: CHOLECALCIFEROL 400 UNIT PO SCH (08:24)
[2018-11-22] MEDS: Polyethylene Glycol 3350 Powder 17 GM Packet PO SCH (08:24)
[2018-11-22] MEDS: N ACETYL CYSTEINE PO SCH (08:24)
[2018-11-22] MEDS: Allopurinol 100 MG Tab PO SCH (08:25)
[2018-11-22] MEDS: Citalopram 20 MG Tab PO SCH (08:25)
[2018-11-22] MEDS: Topiramate 25 MG Tab PO SCH ×2 (08:25→21:25)
[2018-11-22] MEDS: Docusate Sodium 100 MG Cap PO SCH ×2 (08:26→17:12)
[2018-11-22] MEDS: Propranolol 80 MG Cap.ER PO SCH (08:32)
[2018-11-22] MEDS: traMADol 50 MG Tab PO SCH ×2 (09:53→21:23)
[2018-11-22] MEDS: oxyCODONE 5 MG Tab PO PRN ×2 (10:32→17:15)
[2018-11-22] MEDS: Sodium Chloride 0.9% 10 ML Syringe FLUSH PRN (14:18)
[2018-11-22] MEDS: Sodium Chloride 0.9% 50 ML IV SCH (14:19)
[2018-11-22] MEDS: Mirtazapine 15 MG Tab PO SCH (21:25)
[2018-11-23] MEDS: Carbidopa/Levodopa 25-100 MG Tab.ER PO SCH (02:36)
[2018-11-23] MEDS: Carbidopa/Levodopa 25-100 MG Tab PO SCH ×2 (08:01→12:06)
[2018-11-23] MEDS: Omeprazole 20 MG Cap.CR PO SCH (08:01)
[2018-11-23] MEDS: CHOLECALCIFEROL 400 UNIT PO SCH (08:41)
[2018-11-23] MEDS: Apixaban 5 MG Tab PO SCH (08:42)
[2018-11-23] MEDS: N ACETYL CYSTEINE PO SCH (08:42)
[2018-11-23] MEDS: Topiramate 25 MG Tab PO SCH (08:42)
[2018-11-23] MEDS: atorvaSTATin 10 MG Tab PO SCH (08:43)
[2018-11-23] MEDS: Allopurinol 100 MG Tab PO SCH (08:43)
[2018-11-23] MEDS: Propranolol 80 MG Cap.ER PO SCH (08:44)
[2018-11-23] MEDS: Citalopram 20 MG Tab PO SCH (08:44)
[2018-11-23] MEDS: Docusate Sodium 100 MG Cap PO SCH (08:44)
[2018-11-23 08:45] VITALS: BP 101/59; PULSE 79
[2018-11-23] MEDS: Polyethylene Glycol 3350 Powder 17 GM Packet PO SCH (08:45)
[2018-11-23] MEDS: traMADol 50 MG Tab PO SCH (09:56)
[2018-11-23] MEDS: oxyCODONE 5 MG Tab PO PRN (10:00)
[2018-11-23 11:11] LABS: ANION GAP 12.8 mmol/L (5-15)
--- NOTE | 2018-11-23 11:48 | PCM.DCSUM1 ---
Discharge Summary - Hospital Course Free Text/Narrative:: Date of admission: 11/15/18 Date of discharge: 11/23/18 Admission diagnoses: S/p L knee TKA CLL Parkinson disease GERD Constipation Hyperlipidemia Gout Depression Insomnia Discharge diagnoses: S/p L knee TKA CLL Parkinson disease GERD Constipation Hyperlipidemia Gout Depression Insomnia Consultations: Physical therapy Case management Procedures: None Hospital course: He was originally admitted inpatient at [facility] from 11/12/18 to 11/25/18 for increased pain and swelling of the L knee s/p L TKA on 11/10/18 after having been discharged from the hospital the day prior. US was negative for DVT. Improvement was noted with conservative cares, but he was noted to need increased physical therapy intensity prior to safe discharge home and opted for swing bed at [facility]. He was continued on other medications for chronic medical conditions in addition to a regimen of oxycodone, tramadol, and acetaminophen. Review of chart and discussion with nursing notes that he was given one week of vancomycin for possible L knee infection, but no labs, cultures, or imaging was obtained until the day of discharge when noted to be with chronic findings and no acute concerns. The patient and physical therapist state that the redness and warmth of his knee improved following antibiotic administration. Antibiotic discontinued without plan to continue and recommend evaluation with cultures and further work-up if concerns arise in the future. He progressed with physical therapy and was deemed ready for discharge to home with home physical therapy. Discharge and follow-up recommendations: - Discharge to home with home health (see signed [id number] verification) - Medications as ordered below without changes in chronic medications from initial hospitalization aside from pain medication regimen, which he had been prescribed upon discharge from [facility] - Follow-up with Antolin Simms APRN-EXECUTIVE CHE[employer], for hospital follow-up within 3-5 days to reassess - Follow-up with Dr. Sanderson for post-operative follow-up as scheduled - Discharge Data Discharge Date: 11/23/18 Discharge Disposition: Home, Self-Care 01 Condition: Good - Patient Summary/Data Consults: Consultations 11/15/18 10:20 PT Evaluation and Treatment [CONS] Routine - Patient Instructions Diet: Usual Diet as Tolerated Activity: Apply Ice, As Tolerated Showering/Bathing: May Shower Wound/Incision Care: Keep Operative Site/Wound Site Clean and Dry Notify Provider of: Fever, Increased Pain, Swelling and Redness - Discharge Plan *PRESCRIPTION DRUG MONITORING PROGRAM REVIEWED*: Yes *COPY OF PRESCRIPTION DRUG MONITORING REPORT IN PATIENT MARCELO: Yes Home Medications: Home Meds atorvaSTATin [Lipitor] 20 mg PO DAILY 02/03/15 [History] Albuterol [Ventolin HFA] 1 - 2 puff INH Q4H PRN 12/15/17 [History] Allopurinol [Zyloprim] 100 mg PO DAILY 12/15/17 [History] Carbidopa/Levodopa [Carbidopa-Levo ER 50-200] 1 tab PO DAILY@2100 12/15/17 [ History] Carbidopa/Levodopa [Carbidopa-Levodopa 25-100 Tab] 1.5 tab PO TID@0730,1130, 1700 12/15/17 [History] Citalopram Hydrobromide [Celexa] 10 mg PO DAILY 12/15/17 [History] Docusate Calcium [Stool Softener] 100 mg PO BID 12/15/17 [History] Ibrutinib [Imbruvica] 420 mg PO DAILY 12/15/17 [History] Mirtazapine 15 mg PO BEDTIME 12/15/17 [History] Omeprazole 20 mg PO DAILY 12/15/17 [History] Polyethylene Glycol 3350 [MiraLAX] 17 gm PO DAILY 12/15/17 [History] Topiramate 50 mg PO BID 12/15/17 [History] Acetylcysteine [Nac] 600 mg PO DAILY 11/12/18 [History] Apixaban [Eliquis] 2.5 mg PO BID 11/12/18 [History] Carbidopa/Levodopa [Carbidopa-Levo ER 50-200] 1 tab PO DAILY@0100 PRN 11/12/18 [ History] Cholecalciferol (Vitamin D3) [Vitamin D3] 400 unit PO DAILY 11/12/18 [History] Fluticasone Propionate [Flonase] 1 spray INH BID PRN 11/12/18 [History] Propranolol [Inderal LA] 80 mg PO DAILY 11/12/18 [History] Pseudoephedrine HCl [Pseudoephedrine ER] 120 mg PO BID PRN 11/12/18 [History] Sennosides/Docusate Sodium [Senna-Docusate Sodium Tablet] 1 tab PO BID 11/12/18 [History] Urea [Urea 20% Crm] 85 gm .XX DAILY 11/12/18 [History] oxyCODONE 5 mg PO Q4HR PRN 11/12/18 [History] traMADol [Ultram] 50 mg PO BID #0 11/23/18 [Rx] Referrals: Antolin Simms, GL[employer] CRUSHER [Nurse Practitioner] - 11/25/18 (or 11/26/18) - Discharge Summary/Plan Comment DC Time >30 min.: Yes - General Info Date of Service: 11/23/18 Subjective Update: Mr. Cochran reports feeling ready to go home, for which physical therapy agrees is appropriate. Participating with physical therapy. Pain controlled with current analgesic regimen. No skin concerns. Edema improving. No new concerns. - Patient Data Vitals - Most Recent: Last Vital Signs Temp 36.9 C 11/23/18 06:43 Pulse 79 11/23/18 08:44 Resp 20 11/23/18 06:43 BP 101/59 L 11/23/18 08:44 Pulse Ox 96 11/23/18 07:00 Weight - Most Recent: 88.961 kg I&O - Last 24 hours: Intake & Output 11/22/18 11/23/18 11/23/18 22:59 06:59 14:59 Intake Total 500 250 Output Total 1275 Balance 500 -1025 Lab Results - Last 24 hrs: Laboratory Results - last 24 hr 11/23/18 11/23/18 Range/Units 10:40 10:40 WBC 27.27 H D (5.00-10.00) 10^3/uL RBC 3.08 L (4.50-6.00) 10^6/uL Hgb 9.3 L (13.0-17.0) g/dL Hct 28.0 L (40.0-52.0) % MCV 90.9 (82.0-92.0) fL MCH 30.2 (27.0-31.0) pg MCHC 33.2 (32.0-36.0) g/dL RDW 13.3 (11.5-14.5) % Plt Count 238 D (150-400) 10^3/uL MPV 10.0 (7.4-10.4) fL Add Manual Diff Yes Neutrophils % (Manual) 32 L (50-70) % Lymphocytes % (Manual) 62 H (20-40) % Monocytes % (Manual) 6 (2-8) % Absolute Neutrophils 8.7264 Lymphocytes # (Manual) 16.9074 Monocytes # (Manual) 1.6362 Smudge Cells Few Sodium 129 L (136-145) mmol/L Potassium 4.0 (3.3-5.3) mmol/L Chloride 97 L (98-115) mmol/L Carbon Dioxide 23.2 (21.0-32.0) mmol/L Anion Gap 12.8 (5-15) mmol/L BUN 28 H (6-25) mg/dL Creatinine 1.23 H (0.51-1.17) mg/dL Est Cr Clr Drug Dosing 53.58 mL/min Estimated GFR (MDRD) 57 mL/min Glucose 87 (75 - 99) mg/dL Calcium 8.5 L (8.7-10.3) mg/dL Total Bilirubin 0.7 (0.2-1.0) mg/dL AST 17 (15-37) U/L ALT 11 L (12-78) U/L Alkaline Phosphatase 205 H (46-116) IU/L C-Reactive Protein 8.6 H (0.0-0.9) mg/dL Total Protein 6.0 L (6.4-8.2) g/dL Albumin 2.52 L (3.00-4.80) g/dL Med Orders - Current: Current Medications Albuterol (Ventolin Hfa) 0 gm INH Q4H PRN PRN Reason: SOB, WHEEZING, OR COUGH Allopurinol (Zyloprim) 100 mg PO DAILY [facility] Last Admin: 11/23/18 08:43 Dose: 100 mg Apixaban (Eliquis) 2.5 mg PO BID [facility] Last Admin: 11/23/18 08:42 Dose: 2.5 mg Atorvastatin Calcium (Lipitor) 20 mg PO DAILY [facility] Last Admin: 11/23/18 08:43 Dose: 20 mg Carbidopa/Levodopa (Sinemet Cr 25-100 Mg) 2 tab PO DAILY@2100 [facility] Last Admin: 11/22/18 21:24 Dose: 2 tab Carbidopa/Levodopa (Sinemet 25-100 Mg) 1.5 tab PO TID@0730,1130,1700 [facility] Last Admin: 11/23/18 08:01 Dose: 1.5 tab Carbidopa/Levodopa (Sinemet Cr 25-100 Mg) 2 tab PO DAILY@0300 [facility] Last Admin: 11/23/18 02:36 Dose: 2 tab Citalopram Hydrobromide (Celexa) 10 mg PO DAILY [facility] Last Admin: 11/23/18 08:44 Dose: 10 mg Docusate Sodium (Colace) 100 mg PO BID@0900,1700 [facility] Last Admin: 11/23/18 08:44 Dose: 100 mg Fluticasone Propionate (Flonase) 0 gm NASBOTH BID PRN PRN Reason: Allergies Sodium Chloride (Normal Saline) 50 mls @ 50 mls/hr IV ASDIRECTED [facility] Last Admin: 11/22/18 14:19 Dose: 50 mls/hr Vancomycin HCl 1.5 gm/ Sodium (Chloride) 250 mls @ 100 mls/hr IV Q24H [facility] Last Admin: 11/22/18 14:23 Dose: 100 mls/hr Magnesium Hydroxide (Milk Of Magnesia) 30 ml PO BID PRN PRN Reason: Constipation Mirtazapine (Remeron) 15 mg PO BEDTIME [facility] Last Admin: 11/22/18 21:25 Dose: 15 mg Omeprazole (Omeprazole) 20 mg PO ACBREAKFAST [facility] Last Admin: 11/23/18 08:01 Dose: 20 mg Oxycodone HCl (Oxycodone) 5 mg PO Q4H PRN PRN Reason: Pain Last Admin: 11/23/18 10:00 Dose: 5 mg N-Njgttt-R-Cysteine (Nac) 600mg Capsule - Ptom 1 each PO DAILY [facility] Last Admin: 11/23/18 08:42 Dose: 1 each Cholecalciferol ( Vitamin D3) 400 Unit - Ptom 1 each PO DAILY [facility] Last Admin: 11/23/18 08:41 Dose: 1 each Ibrutinib (Imbruvica ) 140 Mg Capsules Own Med 0 each PO DAILY@1800 [facility] Last Admin: 11/22/18 17:15 Dose: 3 each Polyethylene Glycol (Miralax) 17 gm PO DAILY [facility] Last Admin: 11/23/18 08:45 Dose: 17 gm Propranolol HCl (Inderal La) 80 mg PO DAILY [facility] Last Admin: 11/23/18 08:44 Dose: 80 mg Senna/Docusate Sodium (Senna Plus) 1 tab PO DAILY [facility] Last Admin: 11/23/18 08:43 Dose: 1 tab Sodium Chloride (Saline Flush) 10 ml FLUSH Q8HR PRN PRN Reason: keep vein open Last Admin: 11/22/18 14:18 Dose: 10 ml Topiramate (Topamax) 50 mg PO BID [facility] Last Admin: 11/23/18 08:42 Dose: 50 mg Tramadol HCl (Ultram) 50 mg PO BID [facility] Last Admin: 11/23/18 09:56 Dose: 50 mg Urea (Urea 20% Crm) 0 gm TOP DAILY [facility] Last Admin: 11/23/18 08:45 Dose: Not Given Vancomycin HCl (Pharmacy To Dose - Vancomycin) 0 dose .XX ASDIRECTED [facility] Discontinued Medications Acetaminophen (Tylenol Extra Strength) 1,000 mg PO Q8H [facility] Last Admin: 11/16/18 20:47 Dose: Not Given Carbidopa/Levodopa (Sinemet Cr 25-100 Mg) 2 tab PO DAILY@0300 PRN PRN Reason: PARKINSONS, GIVE IF AWAKE Last Admin: 11/21/18 03:04 Dose: 2 tab Docusate Sodium (Colace) 100 mg PO BID [facility] Last Admin: 11/20/18 08:56 Dose: 100 mg Vancomycin HCl 1.5 gm/ Sodium (Chloride) 250 mls @ 166.667 mls/hr IV ONETIME ONE Stop: 11/17/18 01:29 Last Admin: 11/17/18 00:57 Dose: 166.667 mls/hr Vancomycin HCl 1.5 gm/ Sodium (Chloride) 250 mls @ 100 mls/hr IV Q12H [facility] Last Admin: 11/18/18 12:18 Dose: Not Given Morphine Sulfate (Morphine) 4 mg IM ONETIME ONE Stop: 11/16/18 23:01 Last Admin: 11/17/18 00:58 Dose: Not Given Morphine Sulfate (Morphine) 2 mg IVPUSH ONETIME ONE Stop: 11/17/18 00:47 Last Admin: 11/17/18 01:03 Dose: 2 mg Oxycodone HCl (Oxycodone) 5 mg PO Q4HR PRN PRN Reason: Pain Last Admin: 11/17/18 09:16 Dose: 5 mg Oxycodone HCl (Oxycodone) 5 mg PO ONETIME ONE Stop: 11/17/18 10:46 Last Admin: 11/17/18 11:16 Dose: Not Given Ibrutinib [Imbruvica (] 420 Mg - Ptom) 1 each PO DAILY [facility] Ibrutinib [Imbruvica (] 140 Mg - Ptom) 3 each PO DAILY [facility] Last Admin: 11/18/18 09:24 Dose: Not Given Ibrutinib [Imbruvica (] 140 Mg - Ptom) 3 each PO BEDTIME [facility] Last Admin: 11/19/18 21:00 Dose: 3 each Senna/Docusate Sodium (Senna Plus) 1 tab PO BID [facility] Last Admin: 11/19/18 08:28 Dose: 1 tab Senna/Docusate Sodium (Senna Plus) 1 tab PO BEDTIME [facility] Last Admin: 11/19/18 20:56 Dose: 1 tab Sodium Chloride (Saline Flush) 10 ml FLUSH Q8HR PRN PRN Reason: keep vein open Sodium Chloride (Saline Flush) 10 ml FLUSH Q8HR PRN PRN Reason: keep vein open Tamsulosin HCl (Flomax) 0.4 mg PO PCBREAKFAST [facility] Last Admin: 11/20/18 12:30 Dose: 0.4 mg Tramadol HCl (Ultram) 50 mg PO Q12H [facility] Last Admin: 11/16/18 07:43 Dose: 50 mg Vancomycin HCl (Pharmacy To Dose - Vancomycin) 1 dose .XX ASDIRECTED [facility] - Exam Physical Findings Comments:: GENERAL: Well-appearing elderly white male sitting in physical therapy room in no acute distress. HEENT: Normocephalic, atraumatic. Conjunctiva clear. Nares patent without discharge. Mucous membranes moist, posterior pharynx unremarkable. NECK: Supple, no masses. CV: Regular rate and rhythm, no murmurs, rubs, or gallops. 2+ pedal pulses. PULMONARY: Normal effort, clear to auscultation bilaterally, no wheezes, rales, or rhonchi. ABDOMEN: Positive bowel sounds, soft, nontender, nondistended. MUSCULOSKELETAL: L knee with diffuse edema without warmth or significant redness. NEUROLOGICAL: No obvious deficits. DERMATOLOGIC: L knee with anterior incision clean/dry/intact without significant surrounding erythema. PSYCHIATRIC: Alert, interactive, appropriate affect.
== END 2018-11-23 13:39 | disposition home or self-care (01) | DRG 561 ==
LOC: KA.MS 10:20
PROVIDERS: ADMIT Family Medicine; ATTEND Family Medicine
DX: T84.84XA Pain due to internal orthopedic prosthetic devices, implants and grafts, initial encounter (principal); M25.462 Effusion, left knee; M10.9 Gout, unspecified; E78.5 Hyperlipidemia, unspecified; F32.9 Major depressive disorder, single episode, unspecified; G20 Parkinson's disease; G47.00 Insomnia, unspecified; K21.9 Gastro-esophageal reflux disease without esophagitis; G43.909 Migraine, unspecified, not intractable, without status migrainosus; Y83.8 Other surgical procedures as the cause of abnormal reaction of the patient, or of later complication, without mention of misadventure at the time of the procedure; Z79.899 Other long term (current) drug therapy; Z79.51 Long term (current) use of inhaled steroids; Z79.01 Long term (current) use of anticoagulants; Z88.1 Allergy status to other antibiotic agents; Z96.652 Presence of left artificial knee joint
CPT/HCPCS: 36415; 51798; 80053; 80202; 81001; 82565; 85025; 86140; 97110-GP; 97162-GP; A9270-GY; J2270; J3370; J7050

== ENCOUNTER 2018-12-03 10:33 | Observation (INO) | payer MEDICARE, OTHER ==
[2018-12-03] MEDS ORDERED: Sodium Chloride 0.9% 1,000 ML IV ONE (11:09)
[2018-12-03] MEDS ORDERED: Sodium Chloride 0.9% 10 ML Syringe FLUSH PRN ×2 (11:09→12:37)
--- NOTE | 2018-12-03 11:41 | EDM.PDOC ---
ED HPI GENERAL MEDICAL PROBLEM - General Chief Complaint: General Stated Complaint: Lightheaded/Low BP Time Seen by Provider: 12/03/18 11:00 Source of Information: Reports: Patient, Family History Limitations: Reports: No Limitations - History of Present Illness INITIAL COMMENTS - FREE TEXT/NARRATIVE: 73 YO WM presents to ER with hypotension. Pt was scheduled for physical therapy this am and had his BP checked at home and was found to be 90's/50's prompting ER evaluation. Pt was recently (2 days ago) taken off his propranolol due to lower than normal BP readings. Pt reports he isn't taking any BP medications at this time. Pt denies chest pain, shortness of breath, nausea/vomiting, or diaphoresis. Pt denies any bloody stools, or active bleeding. Pt recently had a left TKA. Pt with history of myelodysplastic dz (leukocytosis) but denies blood transfusions in the past. Onset: Today Duration: Getting Worse Location: Reports: Generalized Improves with: Reports: Rest Worsens with: Reports: Movement Context: Reports: Activity Associated Symptoms: Reports: No Other Symptoms - Related Data Allergies Allergy/AdvReac Type Severity Reaction Status Date / Time levofloxacin [From Levaquin] Allergy Cannot Verified 12/03/18 10:41 Remember Home Meds: Home Meds atorvaSTATin [Lipitor] 20 mg PO BEDTIME 02/03/15 [History] Albuterol [Ventolin HFA] 1 - 2 puff INH Q4H PRN 12/15/17 [History] Allopurinol [Zyloprim] 100 mg PO DAILY 12/15/17 [History] Carbidopa/Levodopa [Carbidopa-Levo ER 50-200] 1 tab PO DAILY@2100 12/15/17 [ History] Carbidopa/Levodopa [Carbidopa-Levodopa 25-100 Tab] 1.5 tab PO TID@0730,1130, 1700 12/15/17 [History] Citalopram Hydrobromide [Celexa] 10 mg PO DAILY 12/15/17 [History] Docusate Calcium [Stool Softener] 100 mg PO BID 12/15/17 [History] Ibrutinib [Imbruvica] 420 mg PO DAILY@1800 12/15/17 [History] Mirtazapine 15 mg PO BEDTIME 12/15/17 [History] Omeprazole 20 mg PO DAILY 12/15/17 [History] Polyethylene Glycol 3350 [MiraLAX] 17 gm PO DAILY 12/15/17 [History] Topiramate 50 mg PO BID 12/15/17 [History] Acetylcysteine [Nac] 600 mg PO DAILY 11/12/18 [History] Apixaban [Eliquis] 2.5 mg PO BID 11/12/18 [History] Carbidopa/Levodopa [Carbidopa-Levo ER 50-200] 1 tab PO DAILY@0300 11/12/18 [ History] Cholecalciferol (Vitamin D3) [Vitamin D3] 400 unit PO DAILY 11/12/18 [History] Fluticasone Propionate [Flonase] 1 spray INH BID PRN 11/12/18 [History] Propranolol [Inderal LA] 80 mg PO DAILY 11/12/18 [History] Pseudoephedrine HCl [Pseudoephedrine ER] 120 mg PO BID PRN 11/12/18 [History] Sennosides/Docusate Sodium [Senna-Docusate Sodium Tablet] 1 tab PO BID 11/12/18 [History] Urea [Urea 20% Crm] 85 gm .XX DAILY 11/12/18 [History] oxyCODONE 5 mg PO Q4HR PRN 11/12/18 [History] traMADol [Ultram] 50 mg PO BID #0 11/23/18 [Rx] Solifenacin Succinate 10 mg PO DAILY 12/03/18 [History] Past Medical History HEENT History: Reports: Cataract, Hard of Hearing, Impaired Vision Other Cardiovascular History: cardiac ablation 2013 Other Respiratory History: Lung CA; lobectomy right upper Gastrointestinal History: Reports: GERD Genitourinary History: Reports: Prostate Disorder Other Genitourinary History: Prostate surgery for CA Musculoskeletal History: Reports: Other (See Below) Other Musculoskeletal History: back surgery Neurological History: Reports: Parkinson's Oncologic (Cancer) History: Reports: Leukemia, Lung, Prostate, Other (See Below) Other Oncologic History: currently taking PO chemo for CLL - Infectious Disease History Infectious Disease History: Reports: Chicken Pox, Mumps - Past Surgical History Head Surgeries/Procedures: Reports: None HEENT Surgical History: Reports: Adenoidectomy, Cataract Surgery, Tonsillectomy Cardiovascular Surgical History: Reports: None Respiratory Surgical History: Reports: Lung Resection Other Respiratory Surgeries/Procedures: lobectomy GI Surgical History: Reports: Appendectomy, Cholecystectomy, Colonoscopy Male Surgical History: Reports: TURP-Transurethral Resection of Prostate Other Male Surgeries/Procedures: Removal of prostrate for CA Musculoskeletal Surgical History: Reports: Knee Replacement, Other (See Below) Other Musculoskeletal Surgeries/Procedures:: back surgery 1993, bilateral knee replacements Left on 11/10/18 Oncologic Surgical History: Reports: None Dermatological Surgical History: Reports: Other (See Below) Social & Family History - Family History Family Medical History: Noncontributory - Caffeine Use Caffeine Use: Reports: Coffee, Soda, Tea Caffeine Use Comment: 1-2 cups a day ED ROS GENERAL - Review of Systems Review Of Systems: See Below Constitutional: Reports: No Symptoms HEENT: Reports: No Symptoms Respiratory: Reports: No Symptoms. Denies: Shortness of Breath Cardiovascular: Reports: Blood Pressure Problem, Lightheadedness. Denies: Chest Pain, Palpitations Endocrine: Reports: Fatigue GI/Abdominal: Reports: No Symptoms : Reports: No Symptoms Musculoskeletal: Reports: No Symptoms Skin: Reports: No Symptoms Neurological: Reports: No Symptoms Psychiatric: Reports: No Symptoms Hematologic/Lymphatic: Reports: No Symptoms Immunologic: Reports: No Symptoms ED EXAM, GENERAL - Physical Exam Exam: See Below Exam Limited By: No Limitations General Appearance: Alert, WD/WN, No Apparent Distress Eye Exam: Bilateral Eye: EOMI, PERRL Head: Atraumatic, Normocephalic Neck: Normal Inspection, Supple, Non-Tender, Full Range of Motion Respiratory/Chest: No Respiratory Distress, Lungs Clear, Normal Breath Sounds, No Accessory Muscle Use, Chest Non-Tender Cardiovascular: Normal Peripheral Pulses, Regular Rate, Rhythm, No Edema, No Gallop, No JVD, No Murmur, No Rub GI/Abdominal: Normal Bowel Sounds, Soft, Non-Tender, No Organomegaly, No Distention, No Abnormal Bruit, No Mass Back Exam: Normal Inspection, Full Range of Motion, NT Extremities: Normal Inspection, Normal Range of Motion, Non-Tender, Normal Capillary Refill, No Pedal Edema Neurological: Alert, Oriented, CN II-XII Intact, Normal Cognition, Normal Reflexes, No Motor/Sensory Deficits Psychiatric: Normal Affect, Normal Mood Skin Exam: Warm, Dry, Intact, Normal Color, No Rash Lymphatic: No Adenopathy EKG INTERPRETATION EKG Date: 12/03/18 Time: 12:12 Rhythm: NSR Rate (Beats/Min): 62 Barnard: Normal P-Wave: Present QRS: Normal ST-T: Normal QT: Normal Comparison: No Change Course - Vital Signs Last Recorded V/S: Last Vital Signs Temp 35.8 C 12/03/18 10:42 Pulse 71 12/03/18 10:42 Resp 16 12/03/18 10:42 BP 94/41 L 12/03/18 10:42 Pulse Ox 98 12/03/18 10:42 Orthostatic Blood Pressure [ 61/30 Standing] Orthostatic Blood Pressure [ 84/65 Sitting] Orthostatic Blood Pressure [ 96/54 Supine] - Orders/Labs/Meds Orders: Active Orders 24 hr Category Date Time Status EKG Documentation Completion [RC] ASDIRECTED Care 12/03/18 11:17 Ordered Orthostatic Vital Signs [RC] ASDIRECTED Care 12/03/18 10:55 Active Peripheral IV Care [RC] . DIRECTED Care 12/03/18 11:09 Ordered CBC WITH AUTO DIFF [HEME] Stat Lab 12/03/18 11:09 Ordered MANUAL DIFFERENTIAL QA/NC [HEME] Stat Lab 12/03/18 12:05 Results Sodium Chloride 0.9% [Saline Flush] Med 12/03/18 11:09 Ordered 10 ml FLUSH Q8HR PRN Peripheral IV Insertion Adult [OM.PC] Routine Oth 12/03/18 11:09 Ordered EKG 12 Lead [EK] Routine Ther 12/03/18 11:17 Ordered Medication Orders Sodium Chloride (Saline Flush) 10 ml FLUSH Q8HR PRN PRN Reason: keep vein open Labs: Laboratory Tests 12/03/18 12/03/18 Range/Units 12:05 12:05 WBC 18.54 H (5.00-10.00) 10^3/uL RBC 3.30 L (4.50-6.00) 10^6/uL Hgb 9.8 L (13.0-17.0) g/dL Hct 29.0 L (40.0-52.0) % MCV 87.9 D (82.0-92.0) fL MCH 29.7 (27.0-31.0) pg MCHC 33.8 (32.0-36.0) g/dL RDW 13.6 (11.5-14.5) % Plt Count 221 (150-400) 10^3/uL MPV 10.7 H (7.4-10.4) fL Add Manual Diff Yes Sodium 129 L (136-145) mmol/L Potassium 3.8 (3.3-5.3) mmol/L Chloride 93 L (98-115) mmol/L Carbon Dioxide 21.8 (21.0-32.0) mmol/L Anion Gap 18.0 H (5-15) mmol/L BUN 17 (6-25) mg/dL Creatinine 1.36 H (0.51-1.17) mg/dL Est Cr Clr Drug Dosing 48.46 mL/min Estimated GFR (MDRD) 51 mL/min Glucose 95 (75 - 99) mg/dL Calcium 8.3 L (8.7-10.3) mg/dL Meds: Medications Generic Name Dose Route Start Last Admin Trade Name Freq PRN Reason Stop Dose Admin Sodium Chloride 10 ml 12/03/18 11:09 Saline Flush FLUSH Q8HR PRN keep vein open Discontinued Medications Generic Name Dose Route Start Last Admin Trade Name Freq PRN Reason Stop Dose Admin Sodium Chloride 1,000 mls @ 999 mls/hr 12/03/18 11:09 12/03/18 12:11 Normal Saline IV 12/03/18 12:09 999 mls/hr .BOLUS ONE Administration Departure - Departure Time of Disposition: 12:35 Disposition: Refer to Observation Condition: Fair Clinical Impression: Orthostatic hypotension, Hyponatremia - Discharge Information Referrals: Antolin Simms [employer] [Primary Care Provider] - Forms: ED Department Discharge - My Orders Last 24 Hours: My Active Orders 12/03/18 10:55 Orthostatic Vital Signs [RC] ASDIRECTED 12/03/18 11:09 Peripheral IV Care [RC] . DIRECTED CBC WITH AUTO DIFF [HEME] Stat Sodium Chloride 0.9% [Saline Flush] 10 ml FLUSH Q8HR PRN Peripheral IV Insertion Adult [OM.PC] Routine 12/03/18 11:17 EKG Documentation Completion [RC] ASDIRECTED EKG 12 Lead [EK] Routine 12/03/18 12:05 MANUAL DIFFERENTIAL QA/NC [HEME] Stat - Assessment/Plan Last 24 Hours: My Active Orders 12/03/18 10:55 Orthostatic Vital Signs [RC] ASDIRECTED 12/03/18 11:09 Peripheral IV Care [RC] . DIRECTED CBC WITH AUTO DIFF [HEME] Stat Sodium Chloride 0.9% [Saline Flush] 10 ml FLUSH Q8HR PRN Peripheral IV Insertion Adult [OM.PC] Routine 12/03/18 11:17 EKG Documentation Completion [RC] ASDIRECTED EKG 12 Lead [EK] Routine 12/03/18 12:05 MANUAL DIFFERENTIAL QA/NC [HEME] Stat Assessment:: 1. orthostatic hypotension 2. hyponatremia Plan: 1. admit to medicine- Antolin SALMON accepting 2. NS@125cc/hr 3. CBC/BMP in am 4. supportive care 5. hold propranolol
[2018-12-03] MEDS: Sodium Chloride 0.9% 1,000 ML IV SCH ×2 (13:47→22:06)
[2018-12-03] MEDS ORDERED: Albuterol 8 GM Inhaler INH PRN (14:03)
[2018-12-03] MEDS ORDERED: Fluticasone Propionate Nasal Spray 16 GM Bottle NAS PRN (16:15)
[2018-12-03] MEDS: Carbidopa/Levodopa 25-100 MG Tab PO SCH (17:34)
[2018-12-03] MEDS ORDERED: IBRUTINIB 140 MG PO SCH (18:00)
[2018-12-03] MEDS ORDERED: SOLIFENACIN 10 MG PO SCH (21:00)
[2018-12-03] MEDS ORDERED: Carbidopa/Levodopa 25-100 MG Tab.ER PO SCH (21:00)
[2018-12-03] MEDS ORDERED: atorvaSTATin 10 MG Tab PO SCH (21:00)
[2018-12-03] MEDS ORDERED: Mirtazapine 15 MG Tab PO SCH (21:00)
[2018-12-03] MEDS: Topiramate 25 MG Tab PO SCH (21:07)
[2018-12-03] MEDS: Docusate Sodium 100 MG Cap PO SCH (21:07)
[2018-12-03] MEDS: Apixaban 5 MG Tab PO SCH (21:08)
[2018-12-04] MEDS ORDERED: Carbidopa/Levodopa 25-100 MG Tab.ER PO SCH (03:00)
[2018-12-04] MEDS: Sodium Chloride 0.9% 1,000 ML IV SCH (06:27)
[2018-12-04] MEDS: Carbidopa/Levodopa 25-100 MG Tab PO SCH ×2 (06:30→11:23)
[2018-12-04] MEDS ORDERED: Omeprazole 20 MG Cap.CR PO SCH (07:30)
[2018-12-04 08:39] LABS: ANION GAP 12.3 mmol/L (5-15); CHLORIDE,CL 101 mmol/L (98-115); SODIUM,NA 131 mmol/L (136-145)
[2018-12-04] MEDS ORDERED: UREA SCH (09:00)
[2018-12-04] MEDS ORDERED: Polyethylene Glycol 3350 Powder 17 GM Packet PO SCH (09:00)
[2018-12-04] MEDS ORDERED: Citalopram 20 MG Tab PO SCH (09:00)
[2018-12-04] MEDS ORDERED: Non-Formulary Medication 1 Each (Cholecalciferol (Vitamin D3) [Vitamin D3] 400 UNIT) PO SCH (09:00)
[2018-12-04] MEDS ORDERED: traMADol 50 MG Tab PO SCH (09:00)
[2018-12-04] MEDS ORDERED: Allopurinol 100 MG Tab PO SCH (09:00)
[2018-12-04] MEDS ORDERED: ACETYLCYSTEINE 600 MG PO SCH (09:00)
[2018-12-04] MEDS: Docusate Sodium 100 MG Cap PO SCH (09:27)
[2018-12-04] MEDS: Apixaban 5 MG Tab PO SCH (09:27)
[2018-12-04] MEDS: Topiramate 25 MG Tab PO SCH (09:27)
--- NOTE | 2018-12-04 10:48 | PCM.HP.2 ---
H&P History of Present Illness - General Date of Service: 12/04/18 Admit Problem/Dx: Admission Diagnosis/Problem Admission Diagnosis/Problem Orthostatic hypotension Source of Information: Patient Left Knee Pain Score (Numeric/FACES): 4 - Related Data Allergies/Adverse Reactions: Allergies Allergy/AdvReac Type Severity Reaction Status Date / Time levofloxacin [From Levaquin] Allergy Cannot Verified 12/03/18 10:41 Remember Home Medications: Home Meds atorvaSTATin [Lipitor] 20 mg PO BEDTIME 02/03/15 [History] Albuterol [Ventolin HFA] 1 - 2 puff INH Q4H PRN 12/15/17 [History] Allopurinol [Zyloprim] 100 mg PO DAILY 12/15/17 [History] Carbidopa/Levodopa [Carbidopa-Levo ER 50-200] 1 tab PO DAILY@2100 12/15/17 [ History] Carbidopa/Levodopa [Carbidopa-Levodopa 25-100 Tab] 1.5 tab PO TID@0730,1130, 1700 12/15/17 [History] Citalopram Hydrobromide [Celexa] 10 mg PO DAILY 12/15/17 [History] Docusate Calcium [Stool Softener] 100 mg PO BID 12/15/17 [History] Ibrutinib [Imbruvica] 420 mg PO DAILY@1800 12/15/17 [History] Mirtazapine 15 mg PO BEDTIME 12/15/17 [History] Omeprazole 20 mg PO DAILY 12/15/17 [History] Polyethylene Glycol 3350 [MiraLAX] 17 gm PO DAILY 12/15/17 [History] Topiramate 50 mg PO BID 12/15/17 [History] Acetylcysteine [Nac] 600 mg PO DAILY 11/12/18 [History] Apixaban [Eliquis] 2.5 mg PO BID 11/12/18 [History] Carbidopa/Levodopa [Carbidopa-Levo ER 50-200] 1 tab PO DAILY@0300 11/12/18 [ History] Cholecalciferol (Vitamin D3) [Vitamin D3] 400 unit PO DAILY 11/12/18 [History] Fluticasone Propionate [Flonase] 1 spray INH BID PRN 11/12/18 [History] Propranolol [Inderal LA] 80 mg PO DAILY 11/12/18 [History] Pseudoephedrine HCl [Pseudoephedrine ER] 120 mg PO BID PRN 11/12/18 [History] Sennosides/Docusate Sodium [Senna-Docusate Sodium Tablet] 1 tab PO BID 11/12/18 [History] Urea [Urea 20% Crm] 85 gm .XX DAILY 11/12/18 [History] Solifenacin Succinate 10 mg PO DAILY 12/03/18 [History] traMADol [Ultram] 50 mg PO BID #0 12/04/18 [Rx] Past Medical History HEENT History: Reports: Cataract, Hard of Hearing, Impaired Vision Other Cardiovascular History: cardiac ablation 2013 Other Respiratory History: Lung CA; lobectomy right upper Gastrointestinal History: Reports: GERD Genitourinary History: Reports: Prostate Disorder Other Genitourinary History: Prostate surgery for CA Musculoskeletal History: Reports: Other (See Below) Other Musculoskeletal History: back surgery Neurological History: Reports: Parkinson's Oncologic (Cancer) History: Reports: Leukemia, Lung, Prostate, Other (See Below) Other Oncologic History: currently taking PO chemo for CLL - Infectious Disease History Infectious Disease History: Reports: Chicken Pox, Mumps - Past Surgical History Head Surgeries/Procedures: Reports: None HEENT Surgical History: Reports: Adenoidectomy, Cataract Surgery, Tonsillectomy Cardiovascular Surgical History: Reports: None Respiratory Surgical History: Reports: Lung Resection Other Respiratory Surgeries/Procedures: lobectomy GI Surgical History: Reports: Appendectomy, Cholecystectomy, Colonoscopy Male Surgical History: Reports: TURP-Transurethral Resection of Prostate Other Male Surgeries/Procedures: Removal of prostrate for CA Musculoskeletal Surgical History: Reports: Knee Replacement, Other (See Below) Other Musculoskeletal Surgeries/Procedures:: back surgery 1993, bilateral knee replacements Left on 11/10/18 Oncologic Surgical History: Reports: None Dermatological Surgical History: Reports: Other (See Below) Social & Family History - Family History Family Medical History: Noncontributory - Tobacco Use Smoking Status *Q: Former Smoker Used Tobacco, but Quit: Yes Month/Year Tobacco Last Used: 50 - Caffeine Use Caffeine Use: Reports: Coffee, Soda, Tea Caffeine Use Comment: 1-2 cups a day - Recreational Drug Use Recreational Drug Use: No H&P Review of Systems - Review of Systems: Review Of Systems: See Below General: Reports: No Symptoms HEENT: Reports: No Symptoms Pulmonary: Reports: No Symptoms Cardiovascular: Reports: No Symptoms Gastrointestinal: Reports: No Symptoms Genitourinary: Reports: No Symptoms Musculoskeletal: Reports: No Symptoms Skin: Reports: No Symptoms Psychiatric: Reports: No Symptoms Neurological: Reports: Tremors Hematologic/Lymphatic: Reports: Anemia Immunologic: Reports: No Symptoms Exam - Exam Exam: See Below - Vital Signs Vital Signs: Last Vital Signs Temp 98.0 F 12/04/18 06:25 Pulse 72 12/04/18 06:25 Resp 16 12/04/18 06:25 BP 133/67 12/04/18 06:25 Pulse Ox 96 12/04/18 06:25 Orthostatic Blood Pressure [ 165/77 Standing] Orthostatic Blood Pressure [ 109/64 Sitting] Orthostatic Blood Pressure [ 114/57 Supine] Weight: 190 lb 3.2 oz - Exam Quality Assessment: No: Supplemental Oxygen General: Alert, Oriented, 4 Lungs: Clear to Auscultation, Normal Respiratory Effort Cardiovascular: Regular Rate, Regular Rhythm GI/Abdominal Exam: Soft (Male) Exam: Deferred Back Exam: No: CVA Tenderness (L), CVA Tenderness (R) Extremities: No Pedal Edema Peripheral Pulses: 2+: Radial (R), Femoral (L) Skin: Warm, Dry, Intact Neurological: Cranial Nerves Intact, Reflexes Equal Bilateral Neuro Extensive - Mental Status: Alert, Oriented x3, Normal Mood/Affect, Normal Cognition Neuro Extensive - Motor, Sensory, Reflexes: CN II-XII Intact Psychiatric: Alert, Normal Affect, Normal Mood - Patient Data Lab Results Last 24 hrs: Laboratory Results - last 24 hr 12/03/18 12/03/18 12/04/18 Range/Units 12:05 12:05 08:08 WBC 18.54 H 14.20 H (5.00-10.00) 10^3/uL RBC 3.30 L 3.21 L (4.50-6.00) 10^6/uL Hgb 9.8 L 9.4 L (13.0-17.0) g/dL Hct 29.0 L 28.2 L (40.0-52.0) % MCV 87.9 D 87.9 (82.0-92.0) fL MCH 29.7 29.3 (27.0-31.0) pg MCHC 33.8 33.3 (32.0-36.0) g/dL RDW 13.6 13.8 (11.5-14.5) % Plt Count 221 198 (150-400) 10^3/uL MPV 10.7 H 10.1 (7.4-10.4) fL Add Manual Diff Yes Yes Neutrophils % (Manual) 15 L 24 L (50-70) % Band Neutrophils % 3 L (4-12) % Lymphocytes % (Manual) 79 H 70 H (20-40) % Monocytes % (Manual) 6 3 (2-8) % Absolute Neutrophils 2.7810 3.41 Band Neutrophils # 0.43 Lymphocytes # (Manual) 14.6466 9.94 Monocytes # (Manual) 1.1124 0.43 Sodium 129 L (136-145) mmol/L Potassium 3.8 (3.3-5.3) mmol/L Chloride 93 L (98-115) mmol/L Carbon Dioxide 21.8 (21.0-32.0) mmol/L Anion Gap 18.0 H (5-15) mmol/L BUN 17 (6-25) mg/dL Creatinine 1.36 H (0.51-1.17) mg/dL Est Cr Clr Drug Dosing 48.46 mL/min Estimated GFR (MDRD) 51 mL/min Glucose 95 (75 - 99) mg/dL Calcium 8.3 L (8.7-10.3) mg/dL 12/04/18 Range/Units 08:08 WBC (5.00-10.00) 10^3/uL RBC (4.50-6.00) 10^6/uL Hgb (13.0-17.0) g/dL Hct (40.0-52.0) % MCV (82.0-92.0) fL MCH (27.0-31.0) pg MCHC (32.0-36.0) g/dL RDW (11.5-14.5) % Plt Count (150-400) 10^3/uL MPV (7.4-10.4) fL Add Manual Diff Neutrophils % (Manual) (50-70) % Band Neutrophils % (4-12) % Lymphocytes % (Manual) (20-40) % Monocytes % (Manual) (2-8) % Absolute Neutrophils Band Neutrophils # Lymphocytes # (Manual) Monocytes # (Manual) Sodium 131 L (136-145) mmol/L Potassium 3.8 (3.3-5.3) mmol/L Chloride 101 (98-115) mmol/L Carbon Dioxide 21.5 (21.0-32.0) mmol/L Anion Gap 12.3 (5-15) mmol/L BUN 14 (6-25) mg/dL Creatinine 1.08 (0.51-1.17) mg/dL Est Cr Clr Drug Dosing 61.02 mL/min Estimated GFR (MDRD) > 60 mL/min Glucose 86 (75 - 99) mg/dL Calcium 7.9 L (8.7-10.3) mg/dL Result Diagrams: 12/04/18 08:08 12/04/18 08:08 Problem List Initiated/Reviewed/Updated: Yes Orders Last 24hrs: Active Orders 24 hr Category Date Time Status Patient Status [ADT] Routine ADT 12/03/18 12:37 Active Oxygen Therapy [RC] .PRN Care 12/03/18 12:37 Active Ready for Discharge [RC] PER UNIT ROUTINE Care 12/04/18 10:42 Ordered Up With Assistance [RC] DAILY Care 12/03/18 12:37 Active Vital Signs [RC] 0300,0700,1100,1500,1900,2300 Care 12/03/18 12:37 Active Regular Diet [DIET] Diet 12/03/18 Lunch Active Acetylcysteine [Nac] Med 12/04/18 09:00 Active 0 mg PO DAILY Albuterol [Ventolin HFA] Med 12/03/18 14:03 Active 0 gm INH Q4H PRN Allopurinol [Zyloprim] Med 12/04/18 09:00 Active 100 mg PO DAILY Apixaban [Eliquis] Med 12/03/18 21:00 Active 2.5 mg PO BID Carbidopa/Levodopa [Sinemet 25-100 mg] Med 12/03/18 17:00 Active 1.5 tab PO TID@0730,1130,1700 Carbidopa/Levodopa [Sinemet Cr 25-100 mg] Med 12/04/18 03:00 Active 2 tab PO DAILY@0300 Carbidopa/Levodopa [Sinemet Cr 25-100 mg] Med 12/03/18 21:00 Active 2 tab PO DAILY@2100 Cholecalciferol (Vitamin D3) [Vitamin D3] Med 12/04/18 09:00 Pending 400 unit PO DAILY Citalopram [Celexa] Med 12/04/18 09:00 Active 10 mg PO DAILY Docusate Sodium [Colace] Med 12/03/18 21:00 Active 100 mg PO BID Docusate Sodium/Sennosides [Senna Plus] Med 12/03/18 21:00 Active 1 tab PO BID Fluticasone Propionate [Flonase] Med 12/03/18 16:15 Active 0 gm URIEL BID PRN Ibrutinib [Imbruvica] Med 12/03/18 18:00 Active 0 mg PO DAILY@1800 Mirtazapine [Remeron] Med 12/03/18 21:00 Active 15 mg PO BEDTIME Non-Formulary Medication [NF Drug] Med 12/03/18 21:00 Active 0 each PO DAILY@2100 Omeprazole Med 12/04/18 07:30 Active 20 mg PO ACBREAKFAST Polyethylene Glycol 3350 [MiraLAX] Med 12/04/18 09:00 Active 17 gm PO DAILY Sodium Chloride 0.9% [Normal Saline] 1,000 ml Med 12/03/18 12:45 Active IV ASDIRECTED Sodium Chloride 0.9% [Saline Flush] Med 12/03/18 12:37 Active 10 ml FLUSH Q8HR PRN Topiramate [Topamax] Med 12/03/18 21:00 Active 50 mg PO BID atorvaSTATin [Lipitor] Med 12/03/18 21:00 Active 20 mg PO BEDTIME traMADol [Ultram] Med 12/04/18 09:00 Active 50 mg PO BID Peripheral IV Insertion Adult [OM.PC] Routine Oth 12/03/18 11:09 Ordered Peripheral IV Insertion Adult [OM.PC] Routine Oth 12/03/18 12:37 Ordered Resuscitation Status Routine Resus Stat 12/03/18 12:37 Ordered EKG 12 Lead [EK] Routine Ther 12/03/18 11:17 Stop Req Medication Orders Albuterol (Ventolin Hfa) 0 gm INH Q4H PRN PRN Reason: SOB, WHEEZING, OR COUGH Allopurinol (Zyloprim) 100 mg PO DAILY [facility] Last Admin: 12/04/18 09:28 Dose: 100 mg Apixaban (Eliquis) 2.5 mg PO BID [facility] Last Admin: 12/04/18 09:27 Dose: 2.5 mg Admin: 12/03/18 21:08 Dose: 2.5 mg Atorvastatin Calcium (Lipitor) 20 mg PO BEDTIME [facility] Last Admin: 12/03/18 21:07 Dose: 20 mg Carbidopa/Levodopa (Sinemet Cr 25-100 Mg) 2 tab PO DAILY@0300 [facility] Last Admin: 12/04/18 02:35 Dose: 2 tab Carbidopa/Levodopa (Sinemet Cr 25-100 Mg) 2 tab PO DAILY@2100 [facility] Last Admin: 12/03/18 21:07 Dose: 2 tab Carbidopa/Levodopa (Sinemet 25-100 Mg) 1.5 tab PO TID@0730,1130,1700 [facility] Last Admin: 12/04/18 06:30 Dose: 1.5 tab Admin: 12/03/18 17:34 Dose: 1.5 tab Citalopram Hydrobromide (Celexa) 10 mg PO DAILY [facility] Last Admin: 12/04/18 09:28 Dose: 10 mg Docusate Sodium (Colace) 100 mg PO BID [facility] Last Admin: 12/04/18 09:27 Dose: 100 mg Admin: 12/03/18 21:07 Dose: 100 mg Fluticasone Propionate (Flonase) 0 gm URIEL BID PRN PRN Reason: Allergies Sodium Chloride (Normal Saline) 1,000 mls @ 125 mls/hr IV ASDIRECTED [facility] Last Admin: 12/04/18 06:27 Dose: 125 mls/hr Infusion: 12/04/18 06:06 Dose: 125 mls/hr Admin: 12/03/18 22:06 Dose: 125 mls/hr Infusion: 12/03/18 21:47 Dose: 125 mls/hr Admin: 12/03/18 13:47 Dose: 125 mls/hr Mirtazapine (Remeron) 15 mg PO BEDTIME [facility] Last Admin: 12/03/18 21:07 Dose: 15 mg Acetylcysteine (Nac) 600 Mg Capsules Own Med 0 mg PO DAILY [facility] Last Admin: 12/04/18 09:29 Dose: 600 mg Non-Formulary Medication (Cholecalciferol (Vitamin D3) [Vitamin D3]) 400 unit PO DAILY [facility] Ibrutinib (Imbruvica ) 140 Mg Capsules Own Med 0 mg PO DAILY@1800 [facility] Last Admin: 12/03/18 17:42 Dose: 420 mg Solifenacin 10mg Tab (#Ptom#) 0 each PO DAILY@2100 [facility] Last Admin: 12/03/18 21:06 Dose: 1 each Omeprazole (Omeprazole) 20 mg PO ACBREAKFAST [facility] Last Admin: 12/04/18 06:30 Dose: 20 mg Polyethylene Glycol (Miralax) 17 gm PO DAILY [facility] Last Admin: 12/04/18 09:28 Dose: 17 gm Senna/Docusate Sodium (Senna Plus) 1 tab PO BID [facility] Last Admin: 12/04/18 09:27 Dose: 1 tab Admin: 12/03/18 21:07 Dose: 1 tab Sodium Chloride (Saline Flush) 10 ml FLUSH Q8HR PRN PRN Reason: keep vein open Topiramate (Topamax) 50 mg PO BID [facility] Last Admin: 12/04/18 09:27 Dose: 50 mg Admin: 12/03/18 21:07 Dose: 50 mg Tramadol HCl (Ultram) 50 mg PO BID [facility] Last Admin: 12/04/18 09:03 Dose: 50 mg Assessment/Plan Comment:: Please use this H&P as discharge summary as patient was seen/evaluated same day. History of present illness Mr. Cochran is a resident 73-year-old gentleman who was recently in the hospital due to rehabilitation of a knee replacement however has been having more difficulty with hypotension very labile blood pressures. Pt was scheduled for physical therapy 40 of admission and noted that his BP checked at home and was found to be 90's/50's prompting ER evaluation. Pt was recently (2 days prior to admission) taken off his propranolol due to lower than normal BP readings. Pt reported heiwas not on any blood pressure medicine at that time however the patient has been on tramadol/hydrocodone due to pain. He had no chest pain no shortness of breath, no nausea vomiting or diarrhea. Hospital course Patient's hospital course went well, his blood pressure normalized with IV fluids. He was removed off of oxycodone and placed on limited tramadol prior to physical therapy. His her pressure improved upon discharge it was 152/77. Medication changes/adjustments upon discharge DC oxycodone Final diagnosis Orthostatic Hypotension, drug-induced, Hypovolemia, improved Disposition Patient was DC much improved health with vital signs normalization. He was instructed to increase fluid intake. He will follow-up in the [facility]. - Mortality Measure Prognosis:: Good
--- NOTE | 2018-12-04 10:48 | PCM.DCSUM1 ---
Discharge Summary - Hospital Course Diagnosis: Stroke: No - Discharge Data Discharge Date: 12/04/18 Discharge Disposition: Home, Self-Care 01 Condition: Good - Patient Instructions Diet: Usual Diet as Tolerated, Drink 8-10+ Glasses/Day Activity: As Tolerated Driving: May Drive Today Showering/Bathing: May Shower Notify Provider of: Fever, Increased Pain, Nausea and/or Vomiting Other/Special Instructions: Discontinue Oxycondone. May take 1 tab extra of Tramadol per day prior to PT - Discharge Plan *PRESCRIPTION DRUG MONITORING PROGRAM REVIEWED*: Yes *COPY OF PRESCRIPTION DRUG MONITORING REPORT IN PATIENT MARCELO: Yes Home Medications: Home Meds atorvaSTATin [Lipitor] 20 mg PO BEDTIME 02/03/15 [History] Albuterol [Ventolin HFA] 1 - 2 puff INH Q4H PRN 12/15/17 [History] Allopurinol [Zyloprim] 100 mg PO DAILY 12/15/17 [History] Carbidopa/Levodopa [Carbidopa-Levo ER 50-200] 1 tab PO DAILY@2100 12/15/17 [ History] Carbidopa/Levodopa [Carbidopa-Levodopa 25-100 Tab] 1.5 tab PO TID@0730,1130, 1700 12/15/17 [History] Citalopram Hydrobromide [Celexa] 10 mg PO DAILY 12/15/17 [History] Docusate Calcium [Stool Softener] 100 mg PO BID 12/15/17 [History] Ibrutinib [Imbruvica] 420 mg PO DAILY@1800 12/15/17 [History] Mirtazapine 15 mg PO BEDTIME 12/15/17 [History] Omeprazole 20 mg PO DAILY 12/15/17 [History] Polyethylene Glycol 3350 [MiraLAX] 17 gm PO DAILY 12/15/17 [History] Topiramate 50 mg PO BID 12/15/17 [History] Acetylcysteine [Nac] 600 mg PO DAILY 11/12/18 [History] Apixaban [Eliquis] 2.5 mg PO BID 11/12/18 [History] Carbidopa/Levodopa [Carbidopa-Levo ER 50-200] 1 tab PO DAILY@0300 11/12/18 [ History] Cholecalciferol (Vitamin D3) [Vitamin D3] 400 unit PO DAILY 11/12/18 [History] Fluticasone Propionate [Flonase] 1 spray INH BID PRN 11/12/18 [History] Propranolol [Inderal LA] 80 mg PO DAILY 11/12/18 [History] Pseudoephedrine HCl [Pseudoephedrine ER] 120 mg PO BID PRN 11/12/18 [History] Sennosides/Docusate Sodium [Senna-Docusate Sodium Tablet] 1 tab PO BID 11/12/18 [History] Urea [Urea 20% Crm] 85 gm .XX DAILY 11/12/18 [History] Solifenacin Succinate 10 mg PO DAILY 12/03/18 [History] traMADol [Ultram] 50 mg PO BID #0 12/04/18 [Rx] Referrals: Antolin Simms NP [Primary Care Provider] - (next week [facility]) - Discharge Summary/Plan Comment DC Time >30 min.: Yes Discharge Summary/Plan Comment: Please use H&P as discharge summary as patient was seen/evaluated same day. - Patient Data Vitals - Most Recent: Last Vital Signs Temp 98.0 F 12/04/18 06:25 Pulse 72 12/04/18 06:25 Resp 16 12/04/18 06:25 BP 133/67 12/04/18 06:25 Pulse Ox 96 12/04/18 06:25 Orthostatic Blood Pressure [ 165/77 Standing] Orthostatic Blood Pressure [ 109/64 Sitting] Orthostatic Blood Pressure [ 114/57 Supine] Weight - Most Recent: 190 lb 3.2 oz I&O - Last 24 hours: Intake & Output 12/03/18 12/04/18 12/04/18 22:59 06:59 14:59 Intake Total 2315 1260 Output Total 250 Balance 2315 1010 Lab Results - Last 24 hrs: Laboratory Results - last 24 hr 12/03/18 12/03/18 12/04/18 Range/Units 12:05 12:05 08:08 WBC 18.54 H 14.20 H (5.00-10.00) 10^3/uL RBC 3.30 L 3.21 L (4.50-6.00) 10^6/uL Hgb 9.8 L 9.4 L (13.0-17.0) g/dL Hct 29.0 L 28.2 L (40.0-52.0) % MCV 87.9 D 87.9 (82.0-92.0) fL MCH 29.7 29.3 (27.0-31.0) pg MCHC 33.8 33.3 (32.0-36.0) g/dL RDW 13.6 13.8 (11.5-14.5) % Plt Count 221 198 (150-400) 10^3/uL MPV 10.7 H 10.1 (7.4-10.4) fL Add Manual Diff Yes Yes Neutrophils % (Manual) 15 L 24 L (50-70) % Band Neutrophils % 3 L (4-12) % Lymphocytes % (Manual) 79 H 70 H (20-40) % Monocytes % (Manual) 6 3 (2-8) % Absolute Neutrophils 2.7810 3.41 Band Neutrophils # 0.43 Lymphocytes # (Manual) 14.6466 9.94 Monocytes # (Manual) 1.1124 0.43 Sodium 129 L (136-145) mmol/L Potassium 3.8 (3.3-5.3) mmol/L Chloride 93 L (98-115) mmol/L Carbon Dioxide 21.8 (21.0-32.0) mmol/L Anion Gap 18.0 H (5-15) mmol/L BUN 17 (6-25) mg/dL Creatinine 1.36 H (0.51-1.17) mg/dL Est Cr Clr Drug Dosing 48.46 mL/min Estimated GFR (MDRD) 51 mL/min Glucose 95 (75 - 99) mg/dL Calcium 8.3 L (8.7-10.3) mg/dL 12/04/18 Range/Units 08:08 WBC (5.00-10.00) 10^3/uL RBC (4.50-6.00) 10^6/uL Hgb (13.0-17.0) g/dL Hct (40.0-52.0) % MCV (82.0-92.0) fL MCH (27.0-31.0) pg MCHC (32.0-36.0) g/dL RDW (11.5-14.5) % Plt Count (150-400) 10^3/uL MPV (7.4-10.4) fL Add Manual Diff Neutrophils % (Manual) (50-70) % Band Neutrophils % (4-12) % Lymphocytes % (Manual) (20-40) % Monocytes % (Manual) (2-8) % Absolute Neutrophils Band Neutrophils # Lymphocytes # (Manual) Monocytes # (Manual) Sodium 131 L (136-145) mmol/L Potassium 3.8 (3.3-5.3) mmol/L Chloride 101 (98-115) mmol/L Carbon Dioxide 21.5 (21.0-32.0) mmol/L Anion Gap 12.3 (5-15) mmol/L BUN 14 (6-25) mg/dL Creatinine 1.08 (0.51-1.17) mg/dL Est Cr Clr Drug Dosing 61.02 mL/min Estimated GFR (MDRD) > 60 mL/min Glucose 86 (75 - 99) mg/dL Calcium 7.9 L (8.7-10.3) mg/dL Med Orders - Current: Current Medications Albuterol (Ventolin Hfa) 0 gm INH Q4H PRN PRN Reason: SOB, WHEEZING, OR COUGH Allopurinol (Zyloprim) 100 mg PO DAILY [facility] Last Admin: 12/04/18 09:28 Dose: 100 mg Apixaban (Eliquis) 2.5 mg PO BID [facility] Last Admin: 12/04/18 09:27 Dose: 2.5 mg Atorvastatin Calcium (Lipitor) 20 mg PO BEDTIME [facility] Last Admin: 12/03/18 21:07 Dose: 20 mg Carbidopa/Levodopa (Sinemet Cr 25-100 Mg) 2 tab PO DAILY@0300 [facility] Last Admin: 12/04/18 02:35 Dose: 2 tab Carbidopa/Levodopa (Sinemet Cr 25-100 Mg) 2 tab PO DAILY@2100 [facility] Last Admin: 12/03/18 21:07 Dose: 2 tab Carbidopa/Levodopa (Sinemet 25-100 Mg) 1.5 tab PO TID@0730,1130,1700 [facility] Last Admin: 12/04/18 06:30 Dose: 1.5 tab Citalopram Hydrobromide (Celexa) 10 mg PO DAILY [facility] Last Admin: 12/04/18 09:28 Dose: 10 mg Docusate Sodium (Colace) 100 mg PO BID [facility] Last Admin: 12/04/18 09:27 Dose: 100 mg Fluticasone Propionate (Flonase) 0 gm URIEL BID PRN PRN Reason: Allergies Sodium Chloride (Normal Saline) 1,000 mls @ 125 mls/hr IV ASDIRECTED [facility] Last Admin: 12/04/18 06:27 Dose: 125 mls/hr Mirtazapine (Remeron) 15 mg PO BEDTIME [facility] Last Admin: 12/03/18 21:07 Dose: 15 mg Acetylcysteine (Nac) 600 Mg Capsules Own Med 0 mg PO DAILY [facility] Last Admin: 12/04/18 09:29 Dose: 600 mg Non-Formulary Medication (Cholecalciferol (Vitamin D3) [Vitamin D3]) 400 unit PO DAILY [facility] Ibrutinib (Imbruvica ) 140 Mg Capsules Own Med 0 mg PO DAILY@1800 [facility] Last Admin: 12/03/18 17:42 Dose: 420 mg Solifenacin 10mg Tab (#Ptom#) 0 each PO DAILY@2100 [facility] Last Admin: 12/03/18 21:06 Dose: 1 each Omeprazole (Omeprazole) 20 mg PO ACBREAKFAST [facility] Last Admin: 12/04/18 06:30 Dose: 20 mg Polyethylene Glycol (Miralax) 17 gm PO DAILY [facility] Last Admin: 12/04/18 09:28 Dose: 17 gm Senna/Docusate Sodium (Senna Plus) 1 tab PO BID [facility] Last Admin: 12/04/18 09:27 Dose: 1 tab Sodium Chloride (Saline Flush) 10 ml FLUSH Q8HR PRN PRN Reason: keep vein open Topiramate (Topamax) 50 mg PO BID [facility] Last Admin: 12/04/18 09:27 Dose: 50 mg Tramadol HCl (Ultram) 50 mg PO BID [facility] Last Admin: 12/04/18 09:03 Dose: 50 mg Discontinued Medications Sodium Chloride (Normal Saline) 1,000 mls @ 999 mls/hr IV .BOLUS ONE Stop: 12/03/18 12:09 Last Admin: 12/03/18 12:11 Dose: 999 mls/hr Non-Formulary Medication (Urea [Urea 20% Crm]) 85 gm .XX DAILY [facility] Sodium Chloride (Saline Flush) 10 ml FLUSH Q8HR PRN PRN Reason: keep vein open Solifenacin (Vesicare) 10 mg PO DAILY [facility] Solifenacin (Vesicare) 10 mg PO 1730 [facility] Stop: 12/03/18 20:30 Last Admin: 12/03/18 21:11 Dose: Not Given
[2018-12-04 12:25] VITALS: BP 152/77
== END 2018-12-04 11:44 | disposition home or self-care (01) ==
LOC: KA.ED 10:33 → KA.MS 12:37
PROVIDERS: ADMIT Nurse Practitioner Family; ATTEND Nurse Practitioner Family
DX: I95.1 Orthostatic hypotension (principal); E87.1 Hypo-osmolality and hyponatremia; K21.9 Gastro-esophageal reflux disease without esophagitis; C91.10 Chronic lymphocytic leukemia of B-cell type not having achieved remission; G20 Parkinson's disease; Z88.1 Allergy status to other antibiotic agents; Z87.891 Personal history of nicotine dependence; Z79.01 Long term (current) use of anticoagulants; Z79.891 Long term (current) use of opiate analgesic; Z79.899 Other long term (current) drug therapy
CPT/HCPCS: 36415; 80048; 85025; 93005; 99285; A9270; J7030

== ENCOUNTER 2019-01-04 21:00 | Emergency (ER) | payer MEDICARE, OTHER ==
--- NOTE | 2019-01-04 21:40 | EDM.PDOC ---
ED HPI GENERAL MEDICAL PROBLEM - General Chief Complaint: General Stated Complaint: ELEVATED BLOOD PRESSURE Time Seen by Provider: 01/04/19 21:15 Source of Information: Reports: Patient, Family History Limitations: Reports: No Limitations - History of Present Illness INITIAL COMMENTS - FREE TEXT/NARRATIVE: 73 YO WM presents to ER due to concerns with elevated blood pressures today. Pt was recently (4 weeks ago) taken off propranolol for low blood pressures and started on midodrine PRN. Pt had a BP of 170/90 this am and states she held his midodrine at that time. Pt states he went to work today and had an episode of blurred vision. Pt reports symptoms lasted for less than 1 hour with associated dizziness which resolved as well. Pt continued to have higher than normal BP readings prompting ER evaluation. Pt denies headache, chest pain, diaphoresis, weakness or difficulty ambulating or balance issues. Pt is currently asymptomatic. Onset: Today Duration: Day(s): (1) Location: Reports: Generalized Severity: Mild Improves with: Reports: None Worsens with: Reports: None Associated Symptoms: Denies: Confusion, Chest Pain, Cough, cough w sputum, Diaphoresis, Fever/Chills, Headaches, Loss of Appetite, Malaise, Nausea/Vomiting , Rash, Seizure, Shortness of Breath, Syncope, Weakness - Related Data Allergies Allergy/AdvReac Type Severity Reaction Status Date / Time levofloxacin [From Levaquin] Allergy Cannot Verified 01/04/19 21:30 Remember Home Meds: Home Meds atorvaSTATin [Lipitor] 20 mg PO BEDTIME 02/03/15 [History] Albuterol [Ventolin HFA] 1 - 2 puff INH Q4H PRN 12/15/17 [History] Allopurinol [Zyloprim] 100 mg PO DAILY 12/15/17 [History] Carbidopa/Levodopa [Carbidopa-Levo ER 50-200] 50 mg PO DAILY@2100 12/15/17 [ History] Carbidopa/Levodopa [Carbidopa-Levodopa 25-100 Tab] 37.5 mg PO TID@0730,1130, 1700 12/15/17 [History] Citalopram Hydrobromide [Celexa] 10 mg PO DAILY 12/15/17 [History] Docusate Calcium [Stool Softener] 100 mg PO BID 09/04/18 [History] Ibrutinib [Imbruvica] 420 mg PO DAILY@1800 12/15/17 [History] Mirtazapine 15 mg PO BEDTIME 12/15/17 [History] Omeprazole 20 mg PO DAILY 12/15/17 [History] Polyethylene Glycol 3350 [MiraLAX] 17 gm PO DAILY 12/15/17 [History] Topiramate 50 mg PO BID 12/15/17 [History] Acetylcysteine [Nac] 600 mg PO DAILY 11/12/18 [History] Carbidopa/Levodopa [Carbidopa-Levo ER 50-200] 50 mg PO DAILY@0300 11/12/18 [ History] Cholecalciferol (Vitamin D3) [Vitamin D3] 400 unit PO DAILY 11/12/18 [History] Fluticasone Propionate [Flonase] 1 spray INH BID PRN 11/12/18 [History] Pseudoephedrine HCl [Pseudoephedrine ER] 120 mg PO BID PRN 11/12/18 [History] Urea [Urea 20% Crm] 85 gm .XX DAILY 11/12/18 [History] Solifenacin Succinate 10 mg PO DAILY 12/03/18 [History] traMADol [Ultram] 50 mg PO BID #0 12/04/18 [Rx] Sulfamethoxazole/Trimethoprim [Septra DS] 1 each PO BID #14 tab 01/04/19 [Rx] Past Medical History HEENT History: Reports: Cataract, Hard of Hearing, Impaired Vision Other Cardiovascular History: cardiac ablation 2013 Other Respiratory History: Lung CA; lobectomy right upper Gastrointestinal History: Reports: GERD Genitourinary History: Reports: Prostate Disorder Other Genitourinary History: Prostate surgery for CA Musculoskeletal History: Reports: Other (See Below) Other Musculoskeletal History: back surgery Neurological History: Reports: Parkinson's Oncologic (Cancer) History: Reports: Leukemia, Lung, Prostate, Other (See Below) Other Oncologic History: currently taking PO chemo for CLL - Infectious Disease History Infectious Disease History: Reports: Chicken Pox, Mumps - Past Surgical History Head Surgeries/Procedures: Reports: None HEENT Surgical History: Reports: Adenoidectomy, Cataract Surgery, Tonsillectomy Cardiovascular Surgical History: Reports: None Respiratory Surgical History: Reports: Lung Resection Other Respiratory Surgeries/Procedures: lobectomy GI Surgical History: Reports: Appendectomy, Cholecystectomy, Colonoscopy Male Surgical History: Reports: TURP-Transurethral Resection of Prostate Other Male Surgeries/Procedures: Removal of prostrate for CA Musculoskeletal Surgical History: Reports: Knee Replacement, Other (See Below) Other Musculoskeletal Surgeries/Procedures:: back surgery 1993, bilateral knee replacements Left on 11/10/18 Oncologic Surgical History: Reports: None Dermatological Surgical History: Reports: Other (See Below) Social & Family History - Family History Family Medical History: Noncontributory - Caffeine Use Caffeine Use: Reports: Coffee, Soda, Tea Caffeine Use Comment: 1-2 cups a day ED ROS GENERAL - Review of Systems Review Of Systems: See Below Constitutional: Reports: No Symptoms HEENT: Reports: Vision Change Respiratory: Reports: No Symptoms Cardiovascular: Reports: No Symptoms Endocrine: Reports: No Symptoms GI/Abdominal: Reports: No Symptoms : Reports: No Symptoms Musculoskeletal: Reports: No Symptoms Skin: Reports: No Symptoms Neurological: Reports: Dizziness. Denies: Headache, Numbness, Pre-Existing Deficit, Tingling, Trouble Speaking, Difficulty Walking, Weakness, Change in Speech, Gait Disturbance Psychiatric: Reports: No Symptoms Hematologic/Lymphatic: Reports: No Symptoms Immunologic: Reports: No Symptoms ED EXAM, GENERAL - Physical Exam Exam: See Below Exam Limited By: No Limitations General Appearance: Alert, WD/WN, No Apparent Distress Eye Exam: Bilateral Eye: EOMI, PERRL Throat/Mouth: Normal Inspection, Normal Lips, Normal Teeth, Normal Gums, Normal Oropharynx, Normal Voice, No Airway Compromise Head: Atraumatic, Normocephalic Neck: Normal Inspection, Supple, Non-Tender, Full Range of Motion Respiratory/Chest: No Respiratory Distress, Lungs Clear, Normal Breath Sounds, No Accessory Muscle Use, Chest Non-Tender Cardiovascular: Normal Peripheral Pulses, Regular Rate, Rhythm, No Edema, No Gallop, No JVD, No Murmur, No Rub GI/Abdominal: Normal Bowel Sounds, Soft, Non-Tender, No Organomegaly, No Distention, No Abnormal Bruit, No Mass Back Exam: Normal Inspection, Full Range of Motion, NT Extremities: Normal Inspection, Normal Range of Motion, Non-Tender, Normal Capillary Refill, No Pedal Edema Neurological: Alert, Oriented, CN II-XII Intact, Normal Cognition, Normal Gait, Normal Reflexes, No Motor/Sensory Deficits Psychiatric: Normal Affect, Normal Mood Skin Exam: Warm, Dry, Intact, Normal Color, No Rash Lymphatic: No Adenopathy Course - Vital Signs Last Recorded V/S: Last Vital Signs Temp 36.2 C 01/04/19 21:00 Pulse 70 01/04/19 22:05 Resp 12 01/04/19 22:05 BP 189/81 H 01/04/19 22:05 Pulse Ox 99 01/04/19 21:00 - Orders/Labs/Meds Orders: Active Orders 24 hr Category Date Time Status Head wo Cont [CT] Stat Exams 01/04/19 21:44 Ordered CULTURE URINE [RM] Stat Lab 01/04/19 22:26 Ordered Labs: Laboratory Tests 01/04/19 01/04/19 01/04/19 Range/Units 21:44 21:50 21:50 WBC 25.02 H D (5.00-10.00) 10^3/uL RBC 3.55 L (4.50-6.00) 10^6/uL Hgb 10.6 L (13.0-17.0) g/dL Hct 32.2 L (40.0-52.0) % MCV 90.7 (82.0-92.0) fL MCH 29.9 (27.0-31.0) pg MCHC 32.9 (32.0-36.0) g/dL RDW 13.4 (11.5-14.5) % Plt Count 207 (150-400) 10^3/uL MPV 11.1 H (7.4-10.4) fL Add Manual Diff Yes Neutrophils % (Manual) 24 L (50-70) % Lymphocytes % (Manual) 71 H (20-40) % Monocytes % (Manual) 4 (2-8) % Eosinophils % (Manual) 1 (1-3) % Absolute Neutrophils 6.00 Lymphocytes # (Manual) 17.76 Monocytes # (Manual) 1.00 Eosinophils # (Manual) 0.25 Variant Lymphocytes Few Smudge Cells Few Platelet Estimate Adequate Sodium 135 L (136-145) mmol/L Potassium 4.0 (3.3-5.3) mmol/L Chloride 101 (98-115) mmol/L Carbon Dioxide 23.8 (21.0-32.0) mmol/L Anion Gap 14.2 (5-15) mmol/L BUN 16 (6-25) mg/dL Creatinine 1.31 H (0.51-1.17) mg/dL Est Cr Clr Drug Dosing 49.51 mL/min Estimated GFR (MDRD) 53 mL/min Glucose 84 (75 - 99) mg/dL Calcium 8.6 L (8.7-10.3) mg/dL Specimen Type Urinvoid Urine Color Light yellow (YELLOW) Urine Appearance Slightly cloudy H (CLEAR) Urine pH 7.0 (5.0-9.0) Ur Specific [place] 1.010 (1.005-1.030) Urine Protein Negative (NEGATIVE) mg/dL Urine Glucose (UA) Negative (NEGATIVE) mg/dL Urine Ketones Negative (NEGATIVE) mg/dL Urine Occult Blood Moderate H (NEGATIVE) Urine Nitrite Negative (NEGATIVE) Urine Bilirubin Negative (NEGATIVE) Urine Urobilinogen 0.2 (0.2-1.0) E.U./dL Ur Leukocyte Esterase Moderate H (NEGATIVE) Urine RBC 5-10 H (0-5) /HPF Urine WBC >100 H (0-5) /HPF Ur Epithelial Cells Not seen /LPF Urine Bacteria Few (NONE TO FEW) /HPF - Radiology Interpretation Free Text/Narrative:: CT head- NAD Departure - Departure Time of Disposition: 22:37 Disposition: Home, Self-Care 01 Condition: Good Clinical Impression: UTI, Urinary tract infectious disease, Hypertension screening, Dizziness - Discharge Information Prescriptions: Sulfamethoxazole/Trimethoprim [Septra DS] 1 each PO BID #14 tab Instructions: Urinary Tract Infection, Adult, Dizziness, [id number], Managing Your Hypertension Referrals: Mary Byrd MD [Primary Care Provider] - Forms: ED Department Discharge Additional Instructions: 1. Discharge home 2. septra DS 1 oral twice a day x 7 days 3. follow up with clinic for management of labile BP 4. return to ER for worsening symptoms - My Orders Last 24 Hours: My Active Orders 01/04/19 21:44 Head wo Cont [CT] Stat 01/04/19 22:26 CULTURE URINE [RM] Stat - Assessment/Plan Last 24 Hours: My Active Orders 01/04/19 21:44 Head wo Cont [CT] Stat 01/04/19 22:26 CULTURE URINE [RM] Stat Assessment:: 1. Dizziness 2. UTI 3. labile BP Plan: 1. Discharge home 2. septra DS 1 oral twice a day x 7 days 3. follow up with clinic for management of labile BP 4. return to ER for worsening symptoms
[2019-01-04 22:18] LABS: ANION GAP 14.2 mmol/L (5-15)
[2019-01-04] MEDS ORDERED: Sulfamethoxazole/Trimethoprim 800-160 MG Tab PO ONE (22:37)
[2019-01-04 23:04] VITALS: BP 156/68; PULSE 67
--- NOTE | 2019-01-05 07:31 | CT ---
[id number] CT/CT Head WO IV EXAM: NONCONTRAST HEAD CT INDICATION: Blurred vision. COMPARISON: None. DISCUSSION: There is mild generalized atrophy. The gutierrez and white matter are normal in attenuation. No mass effect or midline shift. No acute hemorrhage or extra-axial fluid collection. No acute territorial infarct is identified. A limited look at the orbits and paranasal sinuses is unremarkable. IMPRESSION: 1. No acute findings. Daniele Anderson MD 01/05/19 0728 Thank you for allowing us to participate in the care of your patient.
== END 2019-01-04 22:58 | disposition home or self-care (01) ==
LOC: KA.ED 21:00
DX: I10 Essential (primary) hypertension (principal); N39.0 Urinary tract infection, site not specified; K21.9 Gastro-esophageal reflux disease without esophagitis; Z88.1 Allergy status to other antibiotic agents; Z79.899 Other long term (current) drug therapy
CPT/HCPCS: 36415; 70450; 80048; 81001; 85025; 87086; 87088; 99284-25; A9270-GY

== ENCOUNTER 2019-01-20 13:08 | Observation (INO) | payer MEDICARE, OTHER ==
[2019-01-20] MEDS ORDERED: Atropine 0.1 MG/ML 10 ML Syringe IVPUSH PRN (13:30)
[2019-01-20] MEDS ORDERED: Nitroglycerin 0.4 MG Tab.SL SL PRN (13:30)
[2019-01-20] MEDS ORDERED: Sodium Chloride 0.9% 10 ML Syringe FLUSH PRN (13:30)
[2019-01-20] MEDS ORDERED: EPINEPHrine 1:10,000 1 MG/10 ML Syringe IVPUSH PRN (13:30)
[2019-01-20] MEDS ORDERED: Lidocaine 2% 100 MG/5 ML Syringe IVPUSH PRN (13:30)
[2019-01-20] MEDS ORDERED: Aspirin 325 MG Tab.EC PO ONE (13:40)
[2019-01-20] MEDS ORDERED: Aspirin 81 MG Tab.Chew PO ONE (13:41)
[2019-01-20] MEDS ORDERED: Fluticasone Propionate Nasal Spray 16 GM Bottle NASBOTH PRN (18:45)
[2019-01-20] MEDS ORDERED: traMADol 50 MG Tab PO PRN (18:45)
[2019-01-20] MEDS ORDERED: Albuterol 8 GM Inhaler INH PRN (18:45)
[2019-01-20] MEDS: Docusate Sodium 100 MG Cap PO SCH (20:52)
[2019-01-20] MEDS ORDERED: Citalopram 20 MG Tab PO SCH (21:00)
[2019-01-20] MEDS ORDERED: Mirtazapine 15 MG Tab PO SCH (21:00)
[2019-01-20] MEDS ORDERED: atorvaSTATin 10 MG Tab PO SCH (21:00)
[2019-01-20] MEDS ORDERED: Carbidopa/Levodopa 50-200 MG Tab.ER PO SCH (21:00)
[2019-01-20] MEDS: Topiramate 25 MG Tab PO SCH (21:05)
[2019-01-20] MEDS: Trospium 20 MG Tab PO SCH (21:07)
[2019-01-21] MEDS ORDERED: CARBIDOPA PO SCH ×2 (03:00→21:00)
[2019-01-21] MEDS ORDERED: LEVODOPA PO SCH ×2 (03:00→21:00)
[2019-01-21] MEDS ORDERED: Carbidopa/Levodopa 50-200 MG Tab.ER PO SCH (03:00)
[2019-01-21] MEDS ORDERED: Carbidopa/Levodopa 25-100 MG Tab PO SCH (07:30)
[2019-01-21] MEDS ORDERED: Omeprazole 20 MG Cap.CR PO SCH (07:30)
[2019-01-21] MEDS ORDERED: Aspirin 81 MG Tab.EC PO SCH (08:00)
[2019-01-21 08:16] LABS: ANION GAP 15.1 mmol/L (5-15)
[2019-01-21] MEDS ORDERED: Polyethylene Glycol 3350 Powder 17 GM Packet PO SCH (09:00)
[2019-01-21] MEDS ORDERED: Allopurinol 100 MG Tab PO SCH (09:00)
[2019-01-21] MEDS ORDERED: Non-Formulary Medication 1 Each (Acetylcysteine [Nac] 600 MG) PO SCH (09:00)
[2019-01-21] MEDS ORDERED: UREA 20% TOP SCH (09:00)
[2019-01-21] MEDS ORDERED: Cholecalciferol (Vitamin D3) 25 MCG Tab PO SCH (09:00)
[2019-01-21] MEDS: Docusate Sodium 100 MG Cap PO SCH (09:13)
--- NOTE | 2019-01-21 09:16 | PCM.DCSUM1 ---
Discharge Summary - Hospital Course Diagnosis: Stroke: No - Discharge Data Discharge Date: 01/21/19 Discharge Disposition: Home, Self-Care 01 Condition: Good - Referral to Home Health Primary Care Physician: Mary Byrd MD - Patient Instructions Diet: Usual Diet as Tolerated Activity: As Tolerated Showering/Bathing: May Shower Notify Provider of: Increased Pain - Discharge Plan *PRESCRIPTION DRUG MONITORING PROGRAM REVIEWED*: No (system not available) *COPY OF PRESCRIPTION DRUG MONITORING REPORT IN PATIENT MARCELO: No Home Medications: Home Meds atorvaSTATin [Lipitor] 20 mg PO BEDTIME 02/03/15 [History] Albuterol [Ventolin HFA] 1 - 2 puff INH Q4H PRN 12/15/17 [History] Allopurinol [Zyloprim] 100 mg PO DAILY 12/15/17 [History] Carbidopa/Levodopa [Carbidopa-Levo ER 50-200] 50 mg PO DAILY@2100 12/15/17 [ History] Carbidopa/Levodopa [Carbidopa-Levodopa 25-100 Tab] 1.5 tab PO TID@0730,1130, 1700 12/15/17 [History] Citalopram Hydrobromide [Celexa] 10 mg PO BEDTIME 12/15/17 [History] Docusate Calcium [Stool Softener] 100 mg PO BID 12/15/17 [History] Ibrutinib [Imbruvica] 420 mg PO DAILY@1800 12/15/17 [History] Mirtazapine 15 mg PO BEDTIME 12/15/17 [History] Omeprazole 20 mg PO DAILY 12/15/17 [History] Polyethylene Glycol 3350 [MiraLAX] 17 gm PO DAILY 12/15/17 [History] Topiramate 50 mg PO BID 12/15/17 [History] Acetylcysteine [Nac] 600 mg PO DAILY 11/12/18 [History] Carbidopa/Levodopa [Carbidopa-Levo ER 50-200] 1 tab PO DAILY@0300 11/12/18 [ History] Cholecalciferol (Vitamin D3) [Vitamin D3] 400 unit PO DAILY 11/12/18 [History] Fluticasone Propionate [Flonase] 1 spray NASBOTH BID 11/12/18 [History] Urea [Urea 20% Crm] 1 applic TOP DAILY 11/12/18 [History] Solifenacin Succinate 10 mg PO DAILY 12/03/18 [History] traMADol [Ultram] 50 mg PO BID #0 12/04/18 [Rx] Carboxymethylcellulose/Lytes [[place]-Stir Oral Orient] 15 ml MM ASDIRECTED PRN 01/20 [History] Droxidopa [Northera] 100 mg PO BID 01/20/19 [History] Saliva Substitution Combo No.9 [Biotene] 5 ml MM DAILY PRN 01/20/19 [History] Referrals: Marizol Manuel MD [Physician] - (next week, mid week) - Discharge Summary/Plan Comment DC Time >30 min.: No Discharge Summary/Plan Comment: Final diagnosis --Angina/CAD/flow-limited disease, high pretest probability correlates with history/High [place] (MHS) --Rule out ACS, this has been ruled out --Neurogenic orthostatic hypotension, post-prandial History summary 73yr male is admitted into observation overnight for rule out AR. Patient had routine appt [place] [facility] see Dr. Esteban funez for re-evaluation of labile blood pressures that he had been having for several months however he endorsed having ~ 1 week intermittent episodes of left-sided chest pain with some occasional radiation down his left arm--similar characteristics from back in 2015 during cardiac workup. Patient described pain, L arm, sharp with underlying dullness sensation. Patient was unsure of any aggravating factors have been. Resolves with resting. Denied any associated diaphoresis, jaw pain or palpitations. On low-dose statin and was increased on admission. No history of DMT2. Admits to family hx of early coronary disease in father who at 50yo from a AR. He had a slight troponin elevation of 0.08 on initial presentation however normalized upon discharge. Pertinent cardiac history 08/15/14 cardiac catheterization: CORONARY CIRCULATION: There was moderate 1-vessel coronary artery disease (60 % LAD). CARDIAC STRUCTURES: Global left ventricular function was normal. EF estimated was 60 %. HEMODYNAMICS: Hemodynamic assessment demonstrates severe systemic hypertension and normal LVEDP. Hospital course Patient was monitored with telemetry overnight observation status. had no chest pain, no shortness of breath, felt great on am rounds, Reviewed telemetry strips him overnight, sinus rhythm, no PVCs, no overnight calls from nursing to provider. No Chest pain or diaphoresis. No fever, BNP 23. EKG sinus rhythm without concerning Q waves or ST morphology Medication changes/adjustments upon discharge Aspirin, 81 mg by mouth daily Nitroglycerin 0.4 mg SL, when necessary for chest pain, #10 given Disposition Patient will be discharged from overnight observation status, follow-up Dr. Esteban funez next week Patient was educated that if he needs the nitroglycerin he should also take blood pressure - General Info Functional Status: Reports: Pain Controlled, Tolerating Diet, Ambulating, Urinating. Denies: New Symptoms - Review of Systems General: Reports: No Symptoms HEENT: Reports: Other (dysphagia) Pulmonary: Reports: No Symptoms Cardiovascular: Reports: Other (Postprandial hypotension in the morning). Denies: Chest Pain, Palpitations Gastrointestinal: Reports: No Symptoms Neurological: Reports: Tremors. Denies: Dizziness, Pre-Existing Deficit Psychiatric: Reports: No Symptoms - Patient Data Vitals - Most Recent: Last Vital Signs Temp 97.3 F 01/21/19 07:00 Pulse 67 01/21/19 07:00 Resp 20 01/21/19 07:00 BP 157/87 H 01/21/19 07:00 Pulse Ox 97 01/21/19 07:00 Weight - Most Recent: 184 lb 6.4 oz I&O - Last 24 hours: Intake & Output 01/20/19 01/21/19 01/21/19 22:59 06:59 14:59 Intake Total 960 300 Balance 960 300 Lab Results - Last 24 hrs: Laboratory Results - last 24 hr 01/20/19 01/20/19 01/21/19 Range/Units 14:05 17:55 00:05 WBC (5.00-10.00) 10^3/uL RBC (4.50-6.00) 10^6/uL Hgb (13.0-17.0) g/dL Hct (40.0-52.0) % MCV (82.0-92.0) fL MCH (27.0-31.0) pg MCHC (32.0-36.0) g/dL RDW (11.5-14.5) % Plt Count (150-400) 10^3/uL MPV (7.4-10.4) fL Add Manual Diff Neutrophils % (Manual) (50-70) % Lymphocytes % (Manual) (20-40) % Monocytes % (Manual) (2-8) % Eosinophils % (Manual) (1-3) % Absolute Neutrophils Lymphocytes # (Manual) Monocytes # (Manual) Eosinophils # (Manual) Sodium (136-145) mmol/L Potassium (3.3-5.3) mmol/L Chloride (98-115) mmol/L Carbon Dioxide (21.0-32.0) mmol/L Anion Gap (5-15) mmol/L BUN (6-25) mg/dL Creatinine (0.51-1.17) mg/dL Est Cr Clr Drug Dosing mL/min Estimated GFR (MDRD) mL/min Glucose (75 - 99) mg/dL Calcium (8.7-10.3) mg/dL Troponin I 0.08 H* 0.06 (0.00-0.070) ng/mL B-Natriuretic Peptide 23 (0-100) pg/mL 01/21/19 01/21/19 Range/Units 07:40 07:40 WBC 27.31 H (5.00-10.00) 10^3/uL RBC 4.04 L (4.50-6.00) 10^6/uL Hgb 12.0 L (13.0-17.0) g/dL Hct 36.0 L (40.0-52.0) % MCV 89.1 (82.0-92.0) fL MCH 29.7 (27.0-31.0) pg MCHC 33.3 (32.0-36.0) g/dL RDW 13.7 (11.5-14.5) % Plt Count 230 (150-400) 10^3/uL MPV 10.9 H (7.4-10.4) fL Add Manual Diff Yes Neutrophils % (Manual) 14 L (50-70) % Lymphocytes % (Manual) 84 H (20-40) % Monocytes % (Manual) 1 L (2-8) % Eosinophils % (Manual) 1 (1-3) % Absolute Neutrophils 3.82 Lymphocytes # (Manual) 22.94 Monocytes # (Manual) 0.27 Eosinophils # (Manual) 0.27 Sodium 131 L (136-145) mmol/L Potassium 4.3 (3.3-5.3) mmol/L Chloride 98 (98-115) mmol/L Carbon Dioxide 22.2 (21.0-32.0) mmol/L Anion Gap 15.1 H (5-15) mmol/L BUN 15 (6-25) mg/dL Creatinine 1.27 H (0.51-1.17) mg/dL Est Cr Clr Drug Dosing 51.89 mL/min Estimated GFR (MDRD) 55 mL/min Glucose 86 (75 - 99) mg/dL Calcium 8.7 (8.7-10.3) mg/dL Troponin I (0.00-0.070) ng/mL B-Natriuretic Peptide (0-100) pg/mL Med Orders - Current: Current Medications Albuterol (Ventolin Hfa) 0 gm INH Q4H PRN PRN Reason: SOB, WHEEZING, OR COUGH Allopurinol (Zyloprim) 100 mg PO DAILY [facility] Aspirin (Halfprin) 81 mg PO WITHBREAKFAST [facility] Atorvastatin Calcium (Lipitor) 40 mg PO BEDTIME [facility] Last Admin: 01/20/19 21:05 Dose: 40 mg Atropine Sulfate (Atropine 0.1 Mg/Ml) 0 mg IVPUSH ASDIRECTED PRN PRN Reason: Heart. Carbidopa/Levodopa (Sinemet 25-100 Mg) 1.5 tab PO TID@0730,1130,1700 [facility] Last Admin: 01/21/19 06:51 Dose: 1.5 tab Carbidopa/Levodopa (Sinemet Cr 50-200 Mg) 1 tab PO DAILY@0300 [facility] Last Admin: 01/21/19 03:38 Dose: 1 tab Carbidopa/Levodopa (Sinemet Cr 50-200 Mg) 1 tab PO DAILY@2100 [facility] Cholecalciferol (Vitamin D3) 12.5 mcg PO DAILY [facility] Citalopram Hydrobromide (Celexa) 10 mg PO BEDTIME [facility] Last Admin: 01/20/19 21:05 Dose: 10 mg Docusate Sodium (Colace) 100 mg PO BID [facility] Last Admin: 01/20/19 20:52 Dose: 100 mg Epinephrine HCl (Epinephrine 1:10,000) 1 mg IVPUSH ASDIRECTED PRN PRN Reason: Heart. Fluticasone Propionate (Flonase) 0 gm NASBOTH BID PRN PRN Reason: Rhinitis Lidocaine HCl (Xylocaine 2%) 0 mg IVPUSH ASDIRECTED PRN PRN Reason: Heart. Mirtazapine (Remeron) 15 mg PO BEDTIME [facility] Last Admin: 01/20/19 21:05 Dose: 15 mg Nitroglycerin (Nitrostat) 0.4 mg SL ASDIRECTED PRN PRN Reason: Heart. Non-Formulary Medication (Acetylcysteine [Nac]) 600 mg PO DAILY [facility] Imbruvica 420 Mg (Own Med) 420 mg PO DAILY@1800 [facility] Urea 20% CrmOwn (Med) 1 applic TOP DAILY [facility] Omeprazole (Omeprazole) 20 mg PO ACBREAKFAST [facility] Last Admin: 01/21/19 06:51 Dose: 20 mg Polyethylene Glycol (Miralax) 17 gm PO DAILY [facility] Sodium Chloride (Saline Flush) 10 ml FLUSH Q8HR PRN PRN Reason: keep vein open Topiramate (Topamax) 50 mg PO BID [facility] Last Admin: 01/20/19 21:05 Dose: Not Given Tramadol HCl (Ultram) 50 mg PO BID PRN PRN Reason: Pain Last Admin: 01/21/19 06:52 Dose: 50 mg Trospium (Sanctura) 20 mg PO BID [facility] Last Admin: 01/20/19 21:07 Dose: Not Given Discontinued Medications Aspirin (Ecotrin) 325 mg PO ONETIME ONE Stop: 01/20/19 13:41 Last Admin: 01/20/19 14:50 Dose: Not Given Aspirin (Aspirin) 324 mg PO ONETIME ONE Stop: 01/20/19 13:42 Last Admin: 01/20/19 14:21 Dose: 324 mg Carbidopa/Levodopa (Sinemet Cr 50-200 Mg) 1 tab PO DAILY@0300 [facility] Carbidopa/Levodopa (Sinemet Cr 50-200 Mg) 1 tab PO DAILY@2100 [facility] Last Admin: 01/20/19 21:05 Dose: 1 tab - Exam Quality Assessment: Denies: Supplemental Oxygen General: Reports: Alert, Oriented Neck: Reports: Supple Lungs: Reports: Clear to Auscultation, Normal Respiratory Effort Cardiovascular: Reports: Regular Rate, Regular Rhythm. Denies: No Murmurs, Bradycardia (Rate 76), Tachycardia, Gallops, Rubs GI/Abdominal Exam: Soft, Non-Tender. No: Distended Rectal (Males) Exam: Deferred Back Exam: Denies: CVA Tenderness (L) Extremities: No Pedal Edema Psy/Mental Status: Reports: Alert, Normal Affect, Normal Mood
[2019-01-21] MEDS: Topiramate 25 MG Tab PO SCH (09:18)
[2019-01-21] MEDS: Trospium 20 MG Tab PO SCH (09:19)
[2019-01-21 11:16] VITALS: BP 129/78; PULSE 71
[2019-01-21] MEDS ORDERED: IMBRUVICA 420 MG PO SCH (18:00)
== END 2019-01-21 10:45 | disposition home or self-care (01) ==
LOC: KA.MS 13:08
PROVIDERS: ADMIT Family Medicine; ATTEND Family Medicine
DX: I25.119 Atherosclerotic heart disease of native coronary artery with unspecified angina pectoris (principal); I12.9 Hypertensive chronic kidney disease with stage 1 through stage 4 chronic kidney disease, or unspecified chronic kidney disease; N18.3 Chronic kidney disease, stage 3 (moderate); E78.00 Pure hypercholesterolemia, unspecified; G90.3 Multi-system degeneration of the autonomic nervous system; G20 Parkinson's disease; C91.10 Chronic lymphocytic leukemia of B-cell type not having achieved remission; M19.90 Unspecified osteoarthritis, unspecified site; Z87.891 Personal history of nicotine dependence; Z88.1 Allergy status to other antibiotic agents; Z79.899 Other long term (current) drug therapy
CPT/HCPCS: 36415; 80048; 83880; 84484; 85025; A9270; G0378; G0379

== ENCOUNTER 2019-09-07 20:04 | Emergency (ER) | payer MEDICARE, OTHER ==
--- NOTE | 2019-09-07 20:26 | EDM.PDOC ---
ED HPI GENERAL MEDICAL PROBLEM - General Chief Complaint: General Stated Complaint: DIFFICULTY SWALLOWING Time Seen by Provider: 09/07/19 20:06 Source of Information: Reports: Patient, Family () History Limitations: Reports: No Limitations - History of Present Illness INITIAL COMMENTS - FREE TEXT/NARRATIVE: Patient is a 73-year-old gentleman who presents to the emergency department this evening via private vehicle with a complaint of difficulty swallowing. Patient states approximately 7 p.m. this evening while eating [place] food. He developed what he felt was a blockage in his throat. His said that he was unable to take liquids. However, just prior to arrival. He was able to drink water. Patient denies fever, upper respiratory symptoms, cough, chest pain, shortness of breath, nausea, vomiting, abdominal pain, or similar symptoms previously. Patient does have Parkinson's disease. Onset: Today, Sudden Onset Date: 09/07/19 Onset Time: 19:00 Duration: Hour(s): Location: Reports: Neck Quality: Reports: Pressure Severity: Mild Improves with: Reports: None Worsens with: Reports: Other (By mouth fluids) Associated Symptoms: Reports: No Other Symptoms. Denies: Chest Pain, Cough, Diaphoresis, Fever/Chills, Nausea/Vomiting, Shortness of Breath - Related Data Allergies Allergy/AdvReac Type Severity Reaction Status Date / Time levofloxacin [From Levaquin] Allergy Cannot Verified 09/07/19 20:11 Remember Home Meds: Home Meds atorvaSTATin [Lipitor] 20 mg PO BEDTIME 02/03/15 [History] Carbidopa/Levodopa [Carbidopa-Levo ER 50-200] 50 mg PO DAILY@2100 12/15/17 [ History] Carbidopa/Levodopa [Carbidopa-Levodopa 25-100 Tab] 1.5 tab PO TID@0730,1130, 1700 12/15/17 [History] Citalopram Hydrobromide [Celexa] 10 mg PO BEDTIME 12/15/17 [History] Ibrutinib [Imbruvica] 420 mg PO DAILY@1800 12/15/17 [History] Mirtazapine 15 mg PO BEDTIME 12/15/17 [History] Omeprazole 20 mg PO DAILY 12/15/17 [History] Topiramate 50 mg PO BID 12/15/17 [History] allopurinoL [Zyloprim] 100 mg PO DAILY 12/15/17 [History] polyethylene glycoL 3350 [MiraLAX] 17 gm PO DAILY 12/15/17 [History] Acetylcysteine [Nac] 600 mg PO DAILY 11/12/18 [History] Carbidopa/Levodopa [Carbidopa-Levo ER 50-200] 1 tab PO DAILY@0300 11/12/18 [ History] Cholecalciferol (Vitamin D3) [Vitamin D3] 400 unit PO DAILY 11/12/18 [History] Fluticasone Propionate [Flonase] 1 spray NASBOTH BID 11/12/18 [History] Urea [Urea 20% Crm] 1 applic TOP DAILY 11/12/18 [History] Solifenacin Succinate 10 mg PO DAILY 12/03/18 [History] traMADol [Ultram] 50 mg PO BID #0 12/04/18 [Rx] Saliva Substitute Combo No.9 [Biotene] 5 ml MM DAILY PRN 01/20/19 [History] Aspirin 81 mg PO DAILY 09/07/19 [History] Losartan Potassium 50 mg PO DAILY 09/07/19 [History] Sennosides/Docusate Sodium [Senna-S] 1 tab PO DAILY 09/07/19 [History] Past Medical History HEENT History: Reports: Cataract, Hard of Hearing, Impaired Vision Other Cardiovascular History: cardiac ablation 2013 Other Respiratory History: Lung CA; lobectomy right upper Gastrointestinal History: Reports: GERD Genitourinary History: Reports: Prostate Disorder Other Genitourinary History: Prostate surgery for CA Musculoskeletal History: Reports: Other (See Below) Other Musculoskeletal History: back surgery Neurological History: Reports: Parkinson's Psychiatric History: Reports: None Endocrine/Metabolic History: Reports: None Hematologic History: Reports: Other (See Below) Other Hematologic History: Leukemia Oncologic (Cancer) History: Reports: Leukemia, Lung, Prostate, Other (See Below) Other Oncologic History: currently taking PO chemo for CLL - Infectious Disease History Infectious Disease History: Reports: None - Past Surgical History Head Surgeries/Procedures: Reports: None HEENT Surgical History: Reports: Adenoidectomy, Cataract Surgery, Tonsillectomy Cardiovascular Surgical History: Reports: None Respiratory Surgical History: Reports: Lung Resection Other Respiratory Surgeries/Procedures: lobectomy GI Surgical History: Reports: Appendectomy, Cholecystectomy, Colonoscopy Male Surgical History: Reports: TURP-Transurethral Resection of Prostate Other Male Surgeries/Procedures: Removal of prostrate for CA Neurological Surgical History: Reports: Other (See Below) Other Neurological Surgeries/Procedures: back surgery for herniated disk done 1993 Musculoskeletal Surgical History: Reports: Knee Replacement, Other (See Below) Other Musculoskeletal Surgeries/Procedures:: back surgery 1993, bilateral knee replacements Left on 11/10/18 Oncologic Surgical History: Reports: None Dermatological Surgical History: Reports: Other (See Below) Social & Family History - Family History Family Medical History: Noncontributory - Caffeine Use Caffeine Use: Reports: Coffee Caffeine Use Comment: 1-2 cups a day ED ROS GENERAL - Review of Systems Review Of Systems: Comprehensive ROS is negative, except as noted in HPI. Constitutional: Reports: No Symptoms HEENT: Reports: Throat Pain. Denies: Throat Swelling Respiratory: Reports: No Symptoms Cardiovascular: Reports: No Symptoms Endocrine: Reports: No Symptoms GI/Abdominal: Reports: No Symptoms : Reports: No Symptoms Musculoskeletal: Reports: No Symptoms Skin: Reports: No Symptoms Neurological: Reports: No Symptoms Psychiatric: Reports: No Symptoms Hematologic/Lymphatic: Reports: No Symptoms Immunologic: Reports: No Symptoms ED EXAM, GENERAL - Physical Exam Exam: See Below Exam Limited By: No Limitations General Appearance: Alert, WD/WN, Mild Distress Nose: Normal Inspection, Normal Mucosa, No Blood Throat/Mouth: Normal Inspection, Normal Lips, Normal Oropharynx, No Airway Compromise Head: Atraumatic, Normocephalic Neck: Normal Inspection, Supple, Non-Tender. No: Lymphadenopathy (L), Lymphadenopathy (R) Respiratory/Chest: No Respiratory Distress, Lungs Clear, Normal Breath Sounds, No Accessory Muscle Use, Chest Non-Tender Cardiovascular: Regular Rate, Rhythm, No Murmur GI/Abdominal: Normal Bowel Sounds, Soft, Non-Tender, No Abnormal Bruit Extremities: Normal Inspection Neurological: Alert, Oriented, Normal Cognition Psychiatric: Normal Affect, Normal Mood Skin Exam: Warm, Dry, Intact, Normal Color, No Rash Lymphatic: No Adenopathy Course - Orders/Labs/Meds Orders: Active Orders 24 hr Category Date Time Status Chest 2V [CR] Stat Exams 09/07/19 20:17 Ordered Soft Tissue Neck wo Cont [CT] Stat Exams 09/07/19 20:17 Ordered - Radiology Interpretation Free Text/Narrative:: Chest x-ray shows no acute cardiopulmonary process. CT soft tissue neck shows large amount of air and food debris distending the proximal to mid thoracic esophagus, no airway compromise. - Re-Assessments/Exams Free Text/Narrative Re-Assessment/Exam: 09/07/19 21:42 Patient afebrile, vital signs stable, taking by mouth fluids without difficulty. Patient also states that sensation has resolved. Discussed case with , GI at [facility]. He recommended stable for discharge, but we will have patient follow-up for EGD outpatient at [facility] in [place]. Patient to have soft food only until seen by him. 09/07/19 21:45 Departure - Departure Time of Disposition: 21:46 Disposition: Home, Self-Care 01 Condition: Good Clinical Impression: Esophageal dysmotility Dysphagia Qualifiers: Dysphagia type: esophageal phase Qualified Code(s): R13.10 - Dysphagia, unspecified - Discharge Information Instructions: Dysphagia Eating Plan, Bite Size Food, Dysphagia Referrals: Marizol Manuel MD [Primary Care Provider] - Additional Instructions: Follow-up with , gastroenterology at [facility] office will contact you tomorrow for appointment scheduling. Patient to eat soft food only instructions given. - My Orders Last 24 Hours: My Active Orders 09/07/19 20:17 Chest 2V [CR] Stat Soft Tissue Neck wo Cont [CT] Stat - Assessment/Plan Last 24 Hours: My Active Orders 09/07/19 20:17 Chest 2V [CR] Stat Soft Tissue Neck wo Cont [CT] Stat Assessment:: Dysphagia Plan: Follow-up with GI
[2019-09-07 20:33] VITALS: BP 186/96; PULSE 68
--- NOTE | 2019-09-08 08:24 | CR ---
[id number] RAD/RAD Chest PA And Lateral EXAM: RAD Chest PA And Lateral INDICATION: DYSPHAGIA COMPARISON: January 2016. DISCUSSION: Post surgical change in the right hilar region. Cardiomediastinal silhouette is normal in size and contour. No infiltrate, effusion, pneumothorax, or edema. IMPRESSION: No acute findings. Dayo Ribeiro MD 09/08/19 0823 Thank you for allowing us to participate in the care of your patient.
--- NOTE | 2019-09-08 08:45 | CT ---
[id number] CT/CT Neck Soft Tissue WO IV Exam: CT Neck Soft Tissue WO IV Indication:DYSPHAGIA Comparison: No prior imaging for comparison. Discussion: Dilated esophagus with debris layering dependently within its lumen. This extends beyond the field of view of this examination. Trachea is widely patent throughout its length. No cervical chain or superior mediastinal adenopathy. Bilateral carotid atherosclerosis with calcified plaque at the bifurcations. 17 mm hypodense left thyroid lobe nodule. Nonspecific effacement of the left piriform sinus without evidence of a discrete mass. Mild amount of scarring in both lung apices. Cervical spondylosis. Impression: Dilated esophagus with debris layering dependently within its lumen. Consider esophagram and/or endoscopy for further evaluation to exclude a distal obstructing mass. 17 mm left thyroid lobe nodule. Thyroid ultrasound is recommended. Dayo Ribeiro MD 09/08/19 0844 Thank you for allowing us to participate in the care of your patient.
== END 2019-09-07 22:11 | disposition home or self-care (01) ==
LOC: KA.ED 20:04
DX: R13.10 Dysphagia, unspecified (principal); K22.8 Other specified diseases of esophagus; K21.9 Gastro-esophageal reflux disease without esophagitis; G20 Parkinson's disease; Z79.899 Other long term (current) drug therapy; Z88.1 Allergy status to other antibiotic agents
CPT/HCPCS: 70490; 71046; 99284; 99284-25

== ENCOUNTER 2021-05-19 16:36 | Emergency (ER) | payer MEDICARE, OTHER ==
[2021-05-19 17:23] LABS: ANION GAP 15.3 mmol/L (5-15)
[2021-05-19] MEDS ORDERED: cloNIDine 0.1 MG Tab PO ONE (17:33)
[2021-05-19] MEDS ORDERED: LORazepam 0.5 MG Tab PO ONE (18:06)
[2021-05-19 20:06] VITALS: BP 167/88; PULSE 62
== END 2021-05-19 19:20 | disposition home or self-care (01) ==
LOC: KA.ED 16:36
DX: I10 Essential (primary) hypertension (principal); E78.00 Pure hypercholesterolemia, unspecified; K21.9 Gastro-esophageal reflux disease without esophagitis; Z87.891 Personal history of nicotine dependence; Z85.118 Personal history of other malignant neoplasm of bronchus and lung; Z88.1 Allergy status to other antibiotic agents; Z79.82 Long term (current) use of aspirin; Z79.899 Other long term (current) drug therapy
CPT/HCPCS: 36415; 80048; 84484; 85025; 99283-25; 99284; A9270-GY

== ENCOUNTER 2021-05-24 20:59 | Emergency (ER) | payer MEDICARE, OTHER ==
[2021-05-25 00:03] VITALS: BP 158/85; PULSE 62
== END 2021-05-24 22:55 | disposition home or self-care (01) ==
LOC: KA.ED 20:59
DX: R04.0 Epistaxis (principal); I10 Essential (primary) hypertension; E78.00 Pure hypercholesterolemia, unspecified; K21.9 Gastro-esophageal reflux disease without esophagitis; Z88.1 Allergy status to other antibiotic agents; Z79.82 Long term (current) use of aspirin; Z79.899 Other long term (current) drug therapy; Z87.891 Personal history of nicotine dependence
CPT/HCPCS: 99283; 99284

== ENCOUNTER 2022-05-05 09:53 | Observation (INO) | payer MEDICARE, OTHER ==
[2022-05-05] MEDS ORDERED: Sodium Chloride 0.9% 10 ML Syringe FLUSH PRN (10:14)
[2022-05-05] MEDS ORDERED: hydrALAZINE 20 MG/ML SDV IVPUSH ONE (10:15)
[2022-05-05 10:52] LABS: ANION GAP 13.4 mmol/L (5-15)
[2022-05-05] MEDS ORDERED: Sodium Chloride 0.9% 1,000 ML IV SCH (11:00)
[2022-05-05] MEDS ORDERED: Aspirin 81 MG Tab.Chew PO ONE (11:30)
[2022-05-05] MEDS ORDERED: Aspirin 81 MG Tab.Chew ONE (11:49)
[2022-05-05] MEDS ORDERED: [UNRECOGNIZED DRUG - OTHER] PO PRN (12:01)
[2022-05-05] MEDS ORDERED: LEVODOPA PO SCH (15:00)
[2022-05-05] MEDS ORDERED: CARBIDOPA PO SCH (15:00)
[2022-05-05] MEDS: LEVODOPA PO SCH ×3 (15:22→20:24)
[2022-05-05] MEDS: CARBIDOPA PO SCH ×3 (15:22→20:24)
[2022-05-05] MEDS ORDERED: GLYCERIN EYEBOTH PRN (17:53)
[2022-05-05] MEDS ORDERED: PEG EYEBOTH PRN (17:53)
[2022-05-05] MEDS ORDERED: HYPROMELLOSE EYEBOTH PRN (17:53)
[2022-05-05] MEDS: SIMETHICONE 125 MG PO SCH ×3 (17:58→20:26)
[2022-05-05] MEDS ORDERED: IBRUTINIB 420 MG PO SCH (18:00)
[2022-05-05] MEDS: TOPIRAMATE 50 MG PO SCH (20:25)
[2022-05-05] MEDS: TRAMADOL 50 MG PO SCH (20:27)
[2022-05-05] MEDS: LOSARTAN 50 MG PO SCH (20:28)
[2022-05-05] MEDS: [UNRECOGNIZED DRUG - OTHER] BUCCAL PRN (20:52)
[2022-05-05] MEDS ORDERED: MIRTAZAPINE 30 MG PO SCH (21:00)
[2022-05-05] MEDS ORDERED: ATORVASTATIN 40 MG PO SCH (21:00)
[2022-05-06] MEDS: LEVODOPA PO SCH ×3 (03:32→10:23)
[2022-05-06] MEDS: CARBIDOPA PO SCH ×3 (03:32→10:23)
[2022-05-06 06:37] VITALS: PULSE 60
[2022-05-06] MEDS ORDERED: OMEPRAZOLE 20 MG PO SCH (07:00)
[2022-05-06 07:41] LABS: ANION GAP 10.1 mmol/L (5-15)
[2022-05-06] MEDS: SIMETHICONE 125 MG PO SCH (08:24)
[2022-05-06] MEDS: LOSARTAN 50 MG PO SCH (08:27)
[2022-05-06] MEDS: TOPIRAMATE 50 MG PO SCH (08:32)
[2022-05-06] MEDS: TRAMADOL 50 MG PO SCH (08:55)
[2022-05-06] MEDS ORDERED: ALLOPURINOL 100 MG PO SCH (09:00)
[2022-05-06] MEDS ORDERED: CITALOPRAM 10 MG PO SCH (09:00)
[2022-05-06] MEDS ORDERED: ACETYLCYSTEINE 600 MG PO SCH (09:00)
[2022-05-06] MEDS ORDERED: Vitamin B Complex Tab PO SCH (09:00)
[2022-05-06] MEDS ORDERED: Polyethylene Glycol 3350 Powder 17 GM Packet PO SCH (09:00)
[2022-05-06] MEDS ORDERED: SOLIFENACIN SUCCINATE 10 MG PO SCH (09:00)
[2022-05-06] MEDS ORDERED: Aspirin 81 MG Tab.Chew PO SCH (09:00)
[2022-05-06] MEDS ORDERED: CHOLECALCIFEROL PO SCH (09:00)
[2022-05-06] MEDS: [UNRECOGNIZED DRUG - OTHER] BUCCAL PRN ×3 (09:19→11:30)
[2022-05-06 11:20] VITALS: BP 130/78
== END 2022-05-06 12:37 | disposition home or self-care (01) ==
LOC: KA.ED 09:53 → KA.MS 11:19
PROVIDERS: ADMIT Physician Assistant Medical; ATTEND Nurse Practitioner Family
DX: I12.9 Hypertensive chronic kidney disease with stage 1 through stage 4 chronic kidney disease, or unspecified chronic kidney disease (principal); N18.30 Chronic kidney disease, stage 3 unspecified; I25.10 Atherosclerotic heart disease of native coronary artery without angina pectoris; E78.00 Pure hypercholesterolemia, unspecified; G20 Parkinson's disease; F32.A Depression, unspecified; C91.10 Chronic lymphocytic leukemia of B-cell type not having achieved remission; K21.9 Gastro-esophageal reflux disease without esophagitis; D63.1 Anemia in chronic kidney disease; E16.2 Hypoglycemia, unspecified; E04.1 Nontoxic single thyroid nodule; F41.9 Anxiety disorder, unspecified; E79.0 Hyperuricemia without signs of inflammatory arthritis and tophaceous disease; Z88.1 Allergy status to other antibiotic agents; Z79.899 Other long term (current) drug therapy; Z79.82 Long term (current) use of aspirin; Z98.890 Other specified postprocedural states; Z90.49 Acquired absence of other specified parts of digestive tract; Z96.653 Presence of artificial knee joint, bilateral; Z87.891 Personal history of nicotine dependence
CPT/HCPCS: 36415; 70450; 71045; 80048; 80053; 81001; 84484; 85025; 85610; 85730; 93005; 93010; 96374; 99284; 99285-25; A9270-GY; G0378; J0360; J3490; J7030

== ENCOUNTER 2022-06-22 17:20 | Observation (INO) | payer MEDICARE, OTHER ==
[2022-06-22 18:45] LABS: ANION GAP 13.2 mmol/L (5-15)
[2022-06-22] MEDS ORDERED: Sodium Chloride 0.9% 500 ML ONE (18:48)
[2022-06-22] MEDS ORDERED: cefTRIAXone 1 GM Vial IVPUSH ONE (18:50)
[2022-06-22] MEDS ORDERED: Sodium Chloride 0.9% 500 ML IV SCH (19:00)
[2022-06-22] MEDS ORDERED: MIRTAZAPINE 30 MG PO SCH (21:00)
[2022-06-22] MEDS ORDERED: [UNRECOGNIZED DRUG - OTHER] MM PRN (21:32)
[2022-06-22] MEDS ORDERED: Non-Formulary Medication 1 Each (Saliva Substitute Combo No.9 [Biotene] 1,000 ML Mouthwash MM PRN (21:32)
[2022-06-22] MEDS ORDERED: LYTES MM PRN (21:32)
[2022-06-22] MEDS ORDERED: CARBOXYMETHYLCELLULOSE MM PRN (21:32)
[2022-06-22] MEDS ORDERED: ATORVASTATIN 40 MG PO SCH (22:00)
[2022-06-22] MEDS ORDERED: SENNOSIDES PO SCH (22:00)
[2022-06-22] MEDS ORDERED: DOCUSATE SODIUM PO SCH (22:00)
[2022-06-22] MEDS ORDERED: SOLIFENACIN SUCCINATE 10 MG PO SCH (22:00)
[2022-06-22] MEDS ORDERED: IBRUTINIB 420 MG PO SCH (22:30)
[2022-06-22] MEDS: LOSARTAN POTASSIUM 50 MG PO SCH (22:46)
[2022-06-22] MEDS: SIMETHICONE 125 MG PO SCH (22:47)
[2022-06-22] MEDS: CARBIDOPA LEVO PO SCH (22:49)
[2022-06-22] MEDS: TOPIRAMATE 50 MG PO SCH (22:49)
[2022-06-23] MEDS: SIMETHICONE 125 MG PO SCH ×2 (02:06→08:37)
[2022-06-23] MEDS: CARBIDOPA LEVO PO SCH (02:06)
[2022-06-23] MEDS ORDERED: Nitroglycerin 0.4 MG Tab.SL SL PRN (07:43)
[2022-06-23] MEDS: LEVODOPA PO SCH ×2 (07:48→10:35)
[2022-06-23] MEDS: CARBIDOPA PO SCH ×2 (07:48→10:35)
[2022-06-23 07:50] LABS: ANION GAP 11.4 mmol/L (5-15)
[2022-06-23] MEDS ORDERED: ATORVASTATIN 40 MG PO SCH (08:15)
[2022-06-23] MEDS ORDERED: CARBIDOPA LEVO PO PRN (08:37)
[2022-06-23] MEDS: LOSARTAN POTASSIUM 50 MG PO SCH (08:42)
[2022-06-23] MEDS: TOPIRAMATE 50 MG PO SCH (08:42)
[2022-06-23] MEDS ORDERED: Non-Formulary Medication 1 Each (Polyethylene Glycol 3350 [Miralax] 17 GM Packet) PO SCH (09:00)
[2022-06-23] MEDS ORDERED: ALLOPURINOL 100 MG PO SCH (09:00)
[2022-06-23] MEDS ORDERED: TRAMADOL 50 MG PO SCH (09:00)
[2022-06-23] MEDS ORDERED: Non-Formulary Medication 1 Each (Omeprazole [Omeprazole] 20 MG Cap.Cr) PO SCH (09:00)
[2022-06-23] MEDS ORDERED: N ACETYL CYSTEINE PO SCH (09:00)
[2022-06-23] MEDS ORDERED: [UNRECOGNIZED DRUG - OTHER] PO SCH (09:00)
[2022-06-23] MEDS ORDERED: UREA TOP SCH (09:00)
[2022-06-23] MEDS ORDERED: CHOLECALCIFEROL 400 UNIT PO SCH (09:00)
[2022-06-23] MEDS ORDERED: ASPIRIN 81 MG PO SCH (09:00)
[2022-06-23] MEDS ORDERED: CITALOPRAM HYDROBROMIDE 10 MG PO SCH ×2 (09:00)
[2022-06-23] MEDS ORDERED: [UNRECOGNIZED DRUG - OTHER] EYEBOTH SCH (09:00)
[2022-06-23 10:37] VITALS: BP 123/72; PULSE 62
[2022-06-23] MEDS ORDERED: Enoxaparin 40 MG/0.4 ML Syringe SUBCUT SCH (18:00)
[2022-06-23] MEDS ORDERED: CARBIDOPA LEVO PO SCH (21:30)
== END 2022-06-23 11:08 | disposition home or self-care (01) ==
LOC: KA.ED 17:20 → UNDOADMOB 19:50 → KA.MS 19:50
PROVIDERS: ADMIT Physician Assistant; ATTEND Family Medicine
DX: R53.1 Weakness (principal); E87.1 Hypo-osmolality and hyponatremia; D72.829 Elevated white blood cell count, unspecified; I10 Essential (primary) hypertension; I25.10 Atherosclerotic heart disease of native coronary artery without angina pectoris; E78.00 Pure hypercholesterolemia, unspecified; K21.9 Gastro-esophageal reflux disease without esophagitis; F32.A Depression, unspecified; G20 Parkinson's disease; Z79.899 Other long term (current) drug therapy; Z79.82 Long term (current) use of aspirin; Z88.1 Allergy status to other antibiotic agents; Z98.890 Other specified postprocedural states; Z96.653 Presence of artificial knee joint, bilateral
CPT/HCPCS: 36415; 80048; 80053; 81001; 83880; 84484; 85025; 87086; 87088; 87186; 96361; 96374; 99285-25; A9270-GY; G0378; J0696; J7040

== ENCOUNTER 2022-12-28 15:24 | Emergency (ER) | payer MEDICARE, OTHER ==
[2022-12-28] MEDS ORDERED: Acetaminophen 500 MG Tab PO ONE (15:39)
[2022-12-28 16:02] LABS: BASOPHILS ABSOLUTE AUTO 0.01 10^3/uL (0.00-0.10); HEMATOCRIT 32.3 % (40.0-52.0); IMMATURE GRAN ABSOLUTE AUTO 0.07 10^3/uL (0.00-0.50); IMMATURE GRAN PERCENT AUTO 0.3 % (0.0-5.0); LYMPHOCYTES ABSOLUTE AUTO 5.96 10^3/uL (1.00-4.00); LYMPHOCYTES PERCENT AUTO 24.2 % (20.0-40.0); MEAN CORPUSCULAR HGB CONC 34.1 g/dL (32.0-36.0); MEAN PLATELET VOLUME 10.8 fL (7.4-10.4); MONOCYTES ABSOLUTE AUTO 0.54 10^3/uL (0.10-0.80); MONOCYTES PERCENT AUTO 2.2 % (2.0-8.0); NEUTROPHILS ABSOLUTE AUTO 18.05 10^3/uL (2.50-7.00); NEUTROPHILS PERCENT AUTO 73.3 % (50.0-70.0); PLATELET COUNT,PLT 122 10^3/uL (150-400); RED BLOOD CELL COUNT 3.55 10^6/uL (4.50-6.00); RED CELL DISTRIBUTION WIDTH 13.6 % (11.5-14.5); WHITE BLOOD CELL COUNT,WBC 24.63 10^3/uL (5.00-10.00)
[2022-12-28 16:17] LABS: APPEARANCE,URINE CLOUDY (CLEAR); BILIRUBIN,URINE NEGATIVE (NEGATIVE); COLOR,URINE DARK YELLOW (YELLOW); GLUCOSE,URINE NEGATIVE (NEGATIVE); KETONES,URINE 15 mg/dL (NEGATIVE); LEUKOCYTE ESTERASE,URINE SMALL (NEGATIVE); NITRITE,URINE NEGATIVE (NEGATIVE); OCCULT BLOOD,URINE LARGE (NEGATIVE); PH,URINE 6.5 (5.0-9.0); PROTEIN,URINE 30 mg/dL (NEGATIVE)
[2022-12-28 16:18] LABS: BACTERIA,URINE MANY /HPF (NONE TO FEW); EPITHELIAL CELLS,URINE RARE /LPF
[2022-12-28 16:19] LABS: WBC,URINE 20-30 /HPF (0-5)
[2022-12-28] MEDS ORDERED: Sodium Chloride 0.9% 1,000 ML IV ONE (16:19)
[2022-12-28 16:47] LABS: ALBUMIN 3.08 g/dL (3.40-5.00); ANION GAP 14.3 mmol/L (5-15); BILIRUBIN TOTAL 0.9 mg/dL (0.2-1.0); CALCIUM 7.9 mg/dL (8.7-10.3); CARBON DIOXIDE,CO2 19.8 mmol/L (21.0-32.0); CREATININE 1.37 mg/dL (0.51-1.17); EST CRCL DRUG DOSING (CG) 43.72 mL/min; POTASSIUM,K 4.1 mmol/L (3.5-5.1); PROTEIN TOTAL,TP 5.6 g/dL (6.4-8.2)
[2022-12-28] MEDS ORDERED: cefTRIAXone 1 GM Vial IVPUSH ONE (17:07)
[2022-12-28 17:40] VITALS: BP 149/75; PULSE 72
== END 2022-12-28 17:45 | disposition home or self-care (01) ==
LOC: KA.ED 15:24
DX: T83.511A Infection and inflammatory reaction due to indwelling urethral catheter, initial encounter (principal); N39.0 Urinary tract infection, site not specified; I12.9 Hypertensive chronic kidney disease with stage 1 through stage 4 chronic kidney disease, or unspecified chronic kidney disease; N18.30 Chronic kidney disease, stage 3 unspecified; E87.1 Hypo-osmolality and hyponatremia; N39.3 Stress incontinence (female) (male); E78.00 Pure hypercholesterolemia, unspecified; N31.9 Neuromuscular dysfunction of bladder, unspecified; G20 Parkinson's disease; Z88.1 Allergy status to other antibiotic agents; Z79.82 Long term (current) use of aspirin; Z79.899 Other long term (current) drug therapy
CPT/HCPCS: 36415; 80053; 81001; 83605; 85025; 87086; 87088; 87186; 96361; 96374; 99284; 99285-25; A9270-GY; J0696; J7030

== ENCOUNTER 2022-12-30 10:50 | Emergency (ER) | payer MEDICARE, OTHER ==
[2022-12-30 10:58] VITALS: PULSE 70
[2022-12-30 11:48] VITALS: BP 158/80
== END 2022-12-30 11:35 | disposition home or self-care (01) ==
LOC: KA.ED 10:50
DX: R33.9 Retention of urine, unspecified (principal); G20 Parkinson's disease; I25.10 Atherosclerotic heart disease of native coronary artery without angina pectoris; E78.00 Pure hypercholesterolemia, unspecified; I12.9 Hypertensive chronic kidney disease with stage 1 through stage 4 chronic kidney disease, or unspecified chronic kidney disease; N18.9 Chronic kidney disease, unspecified; Z79.82 Long term (current) use of aspirin; Z79.899 Other long term (current) drug therapy; Z88.8 Allergy status to other drugs, medicaments and biological substances
CPT/HCPCS: 51702; 99283

== ENCOUNTER 2023-05-27 18:36 | Inpatient (IN) | payer MEDICARE, OTHER ==
[2023-05-27] MEDS: Sodium Chloride 0.9% 10 ML Syringe FLUSH PRN (19:00)
[2023-05-27 19:20] LABS: BASOPHILS ABSOLUTE AUTO 0.01 10^3/uL (0.00-0.10); BASOPHILS PERCENT AUTO 0.1 % (0.0-1.0); HEMOGLOBIN 12.7 g/dL (13.0-17.0); IMMATURE GRAN ABSOLUTE AUTO 0.07 10^3/uL (0.00-0.50); IMMATURE GRAN PERCENT AUTO 0.4 % (0.0-5.0); MEAN CORPUSCULAR HEMOGLOBIN 30.4 pg (27.0-31.0); MEAN CORPUSCULAR HGB CONC 33.4 g/dL (32.0-36.0); MEAN CORPUSCULAR VOLUME 90.9 fL (82.0-92.0); MEAN PLATELET VOLUME 10.5 fL (7.4-10.4); MONOCYTES ABSOLUTE AUTO 0.92 10^3/uL (0.10-0.80); MONOCYTES PERCENT AUTO 4.6 % (2.0-8.0); NEUTROPHILS ABSOLUTE AUTO 13.59 10^3/uL (2.50-7.00); NEUTROPHILS PERCENT AUTO 67.9 % (50.0-70.0); PLATELET COUNT,PLT 151 10^3/uL (150-400); RED BLOOD CELL COUNT 4.18 10^6/uL (4.50-6.00); RED CELL DISTRIBUTION WIDTH 13.2 % (11.5-14.5); WHITE BLOOD CELL COUNT,WBC 19.99 10^3/uL (5.00-10.00)
[2023-05-27 19:42] LABS: B-TYPE NATRIURETIC PEPTIDE,BNP 70 pg/mL (0-100)
[2023-05-27 19:47] LABS: ALBUMIN 3.35 g/dL (3.40-5.00); ALKALINE PHOSPHATASE 114 U/L (46-116); ANION GAP 14.9 mmol/L (5-15); ASPARTATE AMNIOTRANSFERASE,AST 19 U/L (15-37); BILIRUBIN TOTAL 0.7 mg/dL (0.2-1.0); BLOOD UREA NITROGEN,BUN 20 mg/dL (7-18); C-REACTIVE PROTEIN 4.27 mg/dL (0.00-0.50); CALCIUM 8.1 mg/dL (8.7-10.3); CARBON DIOXIDE,CO2 23.2 mmol/L (21.0-32.0); CHLORIDE,CL 92 mmol/L (98-107); CREATININE 1.28 mg/dL (0.51-1.17); GLUCOSE RANDOM 88 mg/dL (70-140); MAGNESIUM 1.8 mg/dL (1.8-2.4); POTASSIUM,K 4.1 mmol/L (3.5-5.1); PROTEIN TOTAL,TP 6.1 g/dL (6.4-8.2); SODIUM,NA 126 mmol/L (136-145)
[2023-05-27 20:03] LABS: LACTIC ACID 1.1 mmol/L (0.4-2.0)
[2023-05-27 20:09] LABS: ALANINE AMINOTRANSFERASE,ALT < 6 U/L (14-63); ESTIMATED GFR 57 mL/min (>=60)
[2023-05-27 20:13] LABS: APPEARANCE,URINE SLIGHTLY CLOUDY (CLEAR); BILIRUBIN,URINE NEGATIVE (NEGATIVE); COLOR,URINE YELLOW (YELLOW); GLUCOSE,URINE NEGATIVE (NEGATIVE); KETONES,URINE NEGATIVE (NEGATIVE); LEUKOCYTE ESTERASE,URINE NEGATIVE (NEGATIVE); NITRITE,URINE NEGATIVE (NEGATIVE); OCCULT BLOOD,URINE LARGE (NEGATIVE); PH,URINE 8.5 (5.0-9.0); PROTEIN,URINE 30 mg/dL (NEGATIVE); UROBILINOGEN,URINE 0.2 E.U./dL (0.2-1.0)
[2023-05-27 20:15] LABS: RBC,URINE 30-40 /HPF (0-5); WBC,URINE 0-5 /HPF (0-5)
[2023-05-27 20:16] LABS: AMORPHOUS SEDIMENT,URINE FEW /HPF (0/HPF); EPITHELIAL CELLS,URINE RARE /LPF
[2023-05-27 20:17] LABS: BACTERIA,URINE RARE /HPF (NONE TO FEW)
[2023-05-27 20:18] LABS: INFLUENZA A NAA NEGATIVE (NEGATIVE); INFLUENZA B NAA NEGATIVE (NEGATIVE); RESPIRATORY SYNCYTIAL VIR NAA POSITIVE (NEGATIVE)
[2023-05-27] MEDS: cefTRIAXone 2 GM Vial IVPUSH ONE (20:19)
[2023-05-27 20:20] LABS: CORONAVIRUS COVID-19 NAA NEGATIVE (NEGATIVE)
[2023-05-27] MEDS: Sodium Chloride 0.9% 1,000 ML IV SCH (20:26)
[2023-05-27] MEDS: Azithromycin 500 MG in Sodium Chloride 0.9% 250 ML IV ONE (20:29)
[2023-05-27] MEDS ORDERED: Ondansetron 4 MG/2 ML SDV IV PRN (21:50)
[2023-05-27] MEDS ORDERED: Albuterol/Ipratropium 3.0-0.5 MG/3 ML Neb Soln NEB PRN (21:50)
[2023-05-27] MEDS: Losartan 50 MG Tab PO SCH (22:31)
[2023-05-28] MEDS: Carbidopa/Levodopa 25-100 MG Tab.ER PO SCH (00:23)
[2023-05-28] MEDS: Acetaminophen 325 MG Tab PO PRN (02:38)
[2023-05-28] MEDS: Carbidopa/Levodopa 25-100 MG Tab PO SCH (06:06)
[2023-05-28] MEDS: Omeprazole 20 MG Cap.CR PO SCH (06:06)
[2023-05-28] MEDS: traMADol 50 MG Tab PO SCH ×2 (06:16→06:34)
[2023-05-28] MEDS ORDERED: Carbidopa/Levodopa 25-100 MG Tab PO SCH (07:00)
[2023-05-28 07:25] LABS: HEMATOCRIT 35.6 % (40.0-52.0); HEMOGLOBIN 12.1 g/dL (13.0-17.0); IMMATURE GRAN PERCENT AUTO 0.4 % (0.0-5.0); LYMPHOCYTES ABSOLUTE AUTO 6.67 10^3/uL (1.00-4.00); LYMPHOCYTES PERCENT AUTO 23.4 % (20.0-40.0); MEAN CORPUSCULAR HEMOGLOBIN 30.7 pg (27.0-31.0); MEAN CORPUSCULAR VOLUME 90.4 fL (82.0-92.0); MONOCYTES ABSOLUTE AUTO 1.14 10^3/uL (0.10-0.80); NEUTROPHILS PERCENT AUTO 72.2 % (50.0-70.0); PLATELET COUNT,PLT 148 10^3/uL (150-400); RED BLOOD CELL COUNT 3.94 10^6/uL (4.50-6.00); RED CELL DISTRIBUTION WIDTH 13.2 % (11.5-14.5); WHITE BLOOD CELL COUNT,WBC 28.51 10^3/uL (5.00-10.00)
[2023-05-28] MEDS ORDERED: Omeprazole 20 MG Cap.CR PO SCH (07:30)
[2023-05-28 07:40] LABS: ANION GAP 15.2 mmol/L (5-15); CALCIUM 7.9 mg/dL (8.7-10.3); CARBON DIOXIDE,CO2 22.9 mmol/L (21.0-32.0); CREATININE 1.05 mg/dL (0.51-1.17); EST CRCL DRUG DOSING (CG) 57.05 mL/min; POTASSIUM,K 4.1 mmol/L (3.5-5.1)
[2023-05-28] MEDS: Aspirin 81 MG Tab.EC PO SCH (08:19)
[2023-05-28] MEDS: Enoxaparin 40 MG/0.4 ML Syringe SUBCUT SCH (08:19)
[2023-05-28] MEDS ORDERED: Enoxaparin 40 MG/0.4 ML Syringe SUBCUT SCH (09:00)
[2023-05-28] MEDS ORDERED: Aspirin 81 MG Tab.EC PO SCH (09:00)
[2023-05-28] MEDS ORDERED: Loperamide 2 MG Cap PO PRN (09:35)
[2023-05-28] MEDS: Furosemide 40 MG/4 ML VIAL IVPUSH ONE (10:10)
[2023-05-28] MEDS: Piperacillin/Tazobactam 4.5 GM in Sodium Chloride 0.9% 100 ML IV ONE (10:10)
[2023-05-28] MEDS: Pantoprazole 40 MG Tab.CR PO SCH (10:10)
[2023-05-28] MEDS ORDERED: VANCOmycin 1.75 GM/350 ML 1.75 GM in Premix Bag 1 BAG IV ONE (10:15)
[2023-05-28] MEDS: Sodium Chloride 0.9% 100 ML IV SCH (10:35)
[2023-05-28] MEDS: VANCOmycin 1.75 GM/350 ML 1.75 GM in Premix Bag 1 BAG IV ONE (11:23)
[2023-05-28] MEDS: hydrALAZINE 10 MG Tab PO SCH (13:23)
[2023-05-28] MEDS: Piperacillin/Tazobactam 4.5 GM in Sodium Chloride 0.9% 100 ML IV SCH (14:07)
[2023-05-28] MEDS: Meclizine 25 MG Tab PO PRN (18:29)
[2023-05-28] MEDS ORDERED: Azithromycin 250 MG Tab PO SCH ×2 (19:00)
[2023-05-28 19:03] LABS: ANION GAP 17.1 mmol/L (5-15); CALCIUM 8.1 mg/dL (8.7-10.3); CARBON DIOXIDE,CO2 21.5 mmol/L (21.0-32.0); CREATININE 1.35 mg/dL (0.51-1.17); EST CRCL DRUG DOSING (CG) 44.37 mL/min; MAGNESIUM 1.8 mg/dL (1.8-2.4); POTASSIUM,K 3.6 mmol/L (3.5-5.1)
[2023-05-28] MEDS ORDERED: cefTRIAXone 2 GM Vial IVPUSH SCH ×2 (20:00)
[2023-05-28] MEDS ORDERED: Mirtazapine 15 MG Tab PO SCH (21:00)
[2023-05-28] MEDS ORDERED: atorvaSTATin 40 MG Tab PO SCH (21:00)
[2023-05-28] MEDS: Mirtazapine 15 MG Tab PO SCH (21:31)
[2023-05-28] MEDS: atorvaSTATin 40 MG Tab PO SCH (21:32)
[2023-05-28] MEDS: Sodium Chloride 1 GM Tab PO ONE (22:03)
[2023-05-28] MEDS ORDERED: Carbidopa/Levodopa 25-100 MG Tab.ER PO SCH (22:38)
[2023-05-29 00:30] LABS: ANION GAP 14.1 mmol/L (5-15); CREATININE 1.28 mg/dL (0.51-1.17); EST CRCL DRUG DOSING (CG) 46.8 mL/min; POTASSIUM,K 3.1 mmol/L (3.5-5.1)
[2023-05-29 00:36] LABS: CALCIUM 7.7 mg/dL (8.7-10.3)
[2023-05-29] MEDS: Potassium Chloride 20 MEQ Tab.ER PO ONE ×2 (02:55→20:44)
[2023-05-29 07:24] LABS: BASOPHILS ABSOLUTE AUTO 0.02 10^3/uL (0.00-0.10); BASOPHILS PERCENT AUTO 0.1 % (0.0-1.0); EOSINOPHILS ABSOLUTE AUTO 0.07 10^3/uL (0.10-0.30); EOSINOPHILS PERCENT AUTO 0.3 % (1.0-3.0); HEMOGLOBIN 11.3 g/dL (13.0-17.0); IMMATURE GRAN ABSOLUTE AUTO 0.19 10^3/uL (0.00-0.50); IMMATURE GRAN PERCENT AUTO 0.7 % (0.0-5.0); LYMPHOCYTES ABSOLUTE AUTO 6.35 10^3/uL (1.00-4.00); LYMPHOCYTES PERCENT AUTO 24.6 % (20.0-40.0); MEAN CORPUSCULAR HEMOGLOBIN 30.9 pg (27.0-31.0); MEAN CORPUSCULAR HGB CONC 34.2 g/dL (32.0-36.0); MEAN CORPUSCULAR VOLUME 90.2 fL (82.0-92.0); MONOCYTES ABSOLUTE AUTO 0.65 10^3/uL (0.10-0.80); MONOCYTES PERCENT AUTO 2.5 % (2.0-8.0); NEUTROPHILS ABSOLUTE AUTO 18.51 10^3/uL (2.50-7.00); NEUTROPHILS PERCENT AUTO 71.8 % (50.0-70.0); PLATELET COUNT,PLT 149 10^3/uL (150-400); RED BLOOD CELL COUNT 3.66 10^6/uL (4.50-6.00); RED CELL DISTRIBUTION WIDTH 13.2 % (11.5-14.5); WHITE BLOOD CELL COUNT,WBC 25.79 10^3/uL (5.00-10.00)
[2023-05-29 07:54] LABS: ANION GAP 13.4 mmol/L (5-15); CALCIUM 7.9 mg/dL (8.7-10.3); CARBON DIOXIDE,CO2 23.1 mmol/L (21.0-32.0); CREATININE 1.47 mg/dL (0.51-1.17); EST CRCL DRUG DOSING (CG) 40.75 mL/min; POTASSIUM,K 3.5 mmol/L (3.5-5.1)
[2023-05-29 08:02] LABS: MAGNESIUM 1.8 mg/dL (1.8-2.4)
[2023-05-29] MEDS ORDERED: Sodium Chloride 1 GM Tab PO SCH (09:00)
[2023-05-29] MEDS: Sodium Chloride 1 GM Tab PO SCH (09:00)
[2023-05-29] MEDS ORDERED: Potassium Chloride 20 MEQ Tab.ER PO SCH (09:00)
[2023-05-29] MEDS: amLODIPine 5 MG Tab PO SCH (10:57)
[2023-05-29] MEDS: VANCOmycin 1.5 GM/300 ML 1.5 GM in Premix Bag 1 BAG IV SCH (11:46)
[2023-05-29] MEDS: hydrALAZINE 50 MG Tab PO SCH (18:14)
[2023-05-29 18:54] LABS: ANION GAP 15.3 mmol/L (5-15); CARBON DIOXIDE,CO2 22.1 mmol/L (21.0-32.0); CREATININE 1.17 mg/dL (0.51-1.17); EST CRCL DRUG DOSING (CG) 51.2 mL/min; MAGNESIUM 1.7 mg/dL (1.8-2.4); POTASSIUM,K 3.4 mmol/L (3.5-5.1)
[2023-05-29] MEDS: Magnesium Sulfate/Water 2 GM in Premix Bag 1 BAG IV ONE (20:45)
[2023-05-29 22:06] LABS: URINE CREATININE 28 mg/dL (20-400); URINE SODIUM 21 mEq/L
[2023-05-30 08:40] LABS: BASOPHILS ABSOLUTE AUTO 0.02 10^3/uL (0.00-0.10); BASOPHILS PERCENT AUTO 0.1 % (0.0-1.0); EOSINOPHILS PERCENT AUTO 0.5 % (1.0-3.0); HEMATOCRIT 33.4 % (40.0-52.0); HEMOGLOBIN 11.3 g/dL (13.0-17.0); IMMATURE GRAN ABSOLUTE AUTO 0.06 10^3/uL (0.00-0.50); IMMATURE GRAN PERCENT AUTO 0.3 % (0.0-5.0); LYMPHOCYTES ABSOLUTE AUTO 5.76 10^3/uL (1.00-4.00); LYMPHOCYTES PERCENT AUTO 29.7 % (20.0-40.0); MEAN CORPUSCULAR HEMOGLOBIN 30.2 pg (27.0-31.0); MEAN CORPUSCULAR HGB CONC 33.8 g/dL (32.0-36.0); MEAN CORPUSCULAR VOLUME 89.3 fL (82.0-92.0); MEAN PLATELET VOLUME 11.3 fL (7.4-10.4); MONOCYTES ABSOLUTE AUTO 0.68 10^3/uL (0.10-0.80); MONOCYTES PERCENT AUTO 3.5 % (2.0-8.0); NEUTROPHILS ABSOLUTE AUTO 12.75 10^3/uL (2.50-7.00); NEUTROPHILS PERCENT AUTO 65.9 % (50.0-70.0); PLATELET COUNT,PLT 145 10^3/uL (150-400); RED BLOOD CELL COUNT 3.74 10^6/uL (4.50-6.00); RED CELL DISTRIBUTION WIDTH 13.1 % (11.5-14.5); WHITE BLOOD CELL COUNT,WBC 19.37 10^3/uL (5.00-10.00)
[2023-05-30 08:48] LABS: ALBUMIN 2.66 g/dL (3.40-5.00); ALKALINE PHOSPHATASE 117 U/L (46-116); ASPARTATE AMNIOTRANSFERASE,AST 19 U/L (15-37); BILIRUBIN TOTAL 0.8 mg/dL (0.2-1.0); BLOOD UREA NITROGEN,BUN 26 mg/dL (7-18); CALCIUM 8.1 mg/dL (8.7-10.3); CARBON DIOXIDE,CO2 19.9 mmol/L (21.0-32.0); CHLORIDE,CL 97 mmol/L (98-107); CREATININE 1.33 mg/dL (0.51-1.17); EST CRCL DRUG DOSING (CG) 45.04 mL/min; GLUCOSE RANDOM 81 mg/dL (70-140); MAGNESIUM 2.9 mg/dL (1.8-2.4); POTASSIUM,K 3.9 mmol/L (3.5-5.1); PROTEIN TOTAL,TP 5.6 g/dL (6.4-8.2); SODIUM,NA 129 mmol/L (136-145)
[2023-05-30 08:50] LABS: ALANINE AMINOTRANSFERASE,ALT < 6 U/L (14-63); ESTIMATED GFR 54 mL/min (>=60)
[2023-05-30] MEDS ORDERED: VANCOmycin 1 GM/200 ML 1 GM in Premix Bag 1 BAG IV SCH (11:00)
[2023-05-30] MEDS: hydrALAZINE 50 MG Tab PO SCH (13:10)
[2023-05-30] MEDS: Amoxicillin/Clavulanate K 875-125 MG Tab PO SCH (17:21)
[2023-05-30] MEDS ORDERED: Morphine 2 MG/ML SYRINGE IVPUSH PRN (19:10)
[2023-05-30] MEDS ORDERED: Melatonin 3 MG Tab PO PRN (19:11)
[2023-05-30] MEDS ORDERED: Gabapentin 100 MG Cap PO SCH (19:12)
[2023-05-31] MEDS: amLODIPine 5 MG Tab PO SCH (06:28)
[2023-05-31 07:49] LABS: BASOPHILS ABSOLUTE AUTO 0.01 10^3/uL (0.00-0.10); BASOPHILS PERCENT AUTO 0.1 % (0.0-1.0); EOSINOPHILS ABSOLUTE AUTO 0.23 10^3/uL (0.10-0.30); EOSINOPHILS PERCENT AUTO 1.7 % (1.0-3.0); HEMATOCRIT 30.8 % (40.0-52.0); HEMOGLOBIN 10.5 g/dL (13.0-17.0); IMMATURE GRAN ABSOLUTE AUTO 0.06 10^3/uL (0.00-0.50); IMMATURE GRAN PERCENT AUTO 0.4 % (0.0-5.0); LYMPHOCYTES ABSOLUTE AUTO 4.28 10^3/uL (1.00-4.00); LYMPHOCYTES PERCENT AUTO 31.1 % (20.0-40.0); MEAN CORPUSCULAR HEMOGLOBIN 30.3 pg (27.0-31.0); MEAN CORPUSCULAR HGB CONC 34.1 g/dL (32.0-36.0); MONOCYTES ABSOLUTE AUTO 0.84 10^3/uL (0.10-0.80); MONOCYTES PERCENT AUTO 6.1 % (2.0-8.0); NEUTROPHILS ABSOLUTE AUTO 8.33 10^3/uL (2.50-7.00); NEUTROPHILS PERCENT AUTO 60.6 % (50.0-70.0); PLATELET COUNT,PLT 136 10^3/uL (150-400); RED BLOOD CELL COUNT 3.46 10^6/uL (4.50-6.00); RED CELL DISTRIBUTION WIDTH 13.2 % (11.5-14.5); WHITE BLOOD CELL COUNT,WBC 13.75 10^3/uL (5.00-10.00)
[2023-05-31 08:13] LABS: ALBUMIN 2.44 g/dL (3.40-5.00); ANION GAP 12.1 mmol/L (5-15); BILIRUBIN TOTAL 0.7 mg/dL (0.2-1.0); CARBON DIOXIDE,CO2 23.6 mmol/L (21.0-32.0); CREATININE 1.08 mg/dL (0.51-1.17); EST CRCL DRUG DOSING (CG) 55.46 mL/min; MAGNESIUM 1.8 mg/dL (1.8-2.4); POTASSIUM,K 3.7 mmol/L (3.5-5.1); PROTEIN TOTAL,TP 5.3 g/dL (6.4-8.2); TSH ULTRASENSITIVE 3.95 uIU/mL (0.340-4.820)
[2023-05-31] MEDS: Losartan 50 MG Tab PO ONE (08:44)
[2023-05-31] MEDS: hydrALAZINE 50 MG Tab PO SCH ×2 (08:44→21:47)
[2023-05-31] MEDS ORDERED: Losartan 25 MG Tab PO SCH (09:00)
[2023-06-01 07:47] LABS: ANION GAP 13.9 mmol/L (5-15); CARBON DIOXIDE,CO2 21.8 mmol/L (21.0-32.0); CREATININE 0.96 mg/dL (0.51-1.17); EST CRCL DRUG DOSING (CG) 62.39 mL/min; MAGNESIUM 1.6 mg/dL (1.8-2.4); POTASSIUM,K 3.7 mmol/L (3.5-5.1)
[2023-06-01] MEDS: Losartan 50 MG Tab PO SCH (08:23)
[2023-06-01] MEDS: Magnesium Oxide 500 MG Tab PO SCH (08:45)
[2023-06-01 09:59] VITALS: BP 170/81; PULSE 70
== END 2023-06-01 09:56 | disposition home or self-care (01) | DRG 194 ==
LOC: KA.ED 18:36 → KA.MS 20:57
PROVIDERS: ADMIT Nurse Practitioner; ATTEND Family Medicine
DX: J18.9 Pneumonia, unspecified organism (principal); J12.1 Respiratory syncytial virus pneumonia; E87.1 Hypo-osmolality and hyponatremia; I25.10 Atherosclerotic heart disease of native coronary artery without angina pectoris; E78.00 Pure hypercholesterolemia, unspecified; B33.8 Other specified viral diseases; K59.09 Other constipation; Z66 Do not resuscitate; K21.9 Gastro-esophageal reflux disease without esophagitis; I12.9 Hypertensive chronic kidney disease with stage 1 through stage 4 chronic kidney disease, or unspecified chronic kidney disease; M54.9 Dorsalgia, unspecified; G89.29 Other chronic pain; F41.9 Anxiety disorder, unspecified; F32.A Depression, unspecified; E87.6 Hypokalemia; Z96.653 Presence of artificial knee joint, bilateral; R31.9 Hematuria, unspecified; N31.9 Neuromuscular dysfunction of bladder, unspecified; G20.B1 Parkinson's disease with dyskinesia, without mention of fluctuations; H91.90 Unspecified hearing loss, unspecified ear; H90.71 Mixed conductive and sensorineural hearing loss, unilateral, right ear, with unrestricted hearing on the contralateral side; N18.30 Chronic kidney disease, stage 3 unspecified; D72.829 Elevated white blood cell count, unspecified; Z88.1 Allergy status to other antibiotic agents; Z79.82 Long term (current) use of aspirin; Z79.899 Other long term (current) drug therapy; Z85.118 Personal history of other malignant neoplasm of bronchus and lung; Z98.890 Other specified postprocedural states; Z85.46 Personal history of malignant neoplasm of prostate; Z85.6 Personal history of leukemia; Z98.49 Cataract extraction status, unspecified eye; Z90.89 Acquired absence of other organs; Z90.2 Acquired absence of lung [part of]; Z90.49 Acquired absence of other specified parts of digestive tract; Z88.8 Allergy status to other drugs, medicaments and biological substances
CPT/HCPCS: 0241U; 36415; 71045; 80048; 80053; 80202; 81001; 82570; 83605; 83735; 83880; 83930; 83935; 84300; 84443; 84484; 85025; 86140; 87040; 93005; 93010; 96374; 96375; 99223-GT; 99232-GT; 99233-GT; 99239-GT; 99284; 99285-25; A9270-GY; J0456; J0696; J1650; J1940; J2543; J3370; J3475; J3490; J7030; J7050; Q3014